=== PATIENT | male | born 1980 | race Caucasian/White ===

== ENCOUNTER 2017-07-15 13:59 | Inpatient (IN) | payer OTHER, MEDICARE ==
[~2017-07-15] VITALS: Ht 188 cm; Wt 130.0 kg
[2017-07-15] MEDS ORDERED: METF500T4 PO (14:28)
[2017-07-15] MEDS ORDERED: MEST60TA PO (14:28)
[2017-07-15] MEDS ORDERED: LANTUS2P SQ (14:28)
[2017-07-15] MEDS ORDERED: MYCO250 PO (14:28)
[2017-07-15] MEDS ORDERED: GLIP1TAB60 PO (14:28)
[2017-07-15] MEDS ORDERED: OMEP20TA93 PO (14:28)
[2017-07-15] MEDS ORDERED: LOPE-1 PO (14:28)
[2017-07-15] MEDS ORDERED: triglyceride med PO (14:28)
[2017-07-15] MEDS ORDERED: PAXI10TA8 PO (14:28)
[2017-07-15] MEDS ORDERED: ACETAMINOPHEN 325 MG TAB PO PRN (18:00)
[2017-07-15] MEDS ORDERED: MAGNESIUM HYDROXIDE SUSP 30 ML CUP PO PRN (18:00)
[2017-07-15] MEDS ORDERED: NALOXONE HCL 0.4 MG/ML AMP IV PUSH PRN (18:00)
[2017-07-15] MEDS ORDERED: BISACODYL 10 MG SUPP RECTAL PRN (18:00)
[2017-07-15] MEDS ORDERED: LACTULOSE SYRUP 20 GM/30 ML CUP PO PRN (18:00)
[2017-07-15] MEDS ORDERED: SENNOSIDES 8.6 MG TAB PO PRN (18:00)
[2017-07-15] MEDS ORDERED: ONDANSETRON HCL 4 MG/2 ML VIAL IVP PRN (18:00)
[2017-07-15] MEDS ORDERED: SODIUM CHLORIDE 0.9% FLUSH 10 ML FLUSH IV FLUSH PRN (18:00)
[2017-07-15 20:00] VITALS: BP 135/88; PULSE 58; RESP 16; TEMP 98; O2SAT 95
[2017-07-15] MEDS ORDERED: IOHEXOL 350 MG/ML 10 ML VIAL (for RAD DIAG) IVCONTRAST ONE (20:21)
[2017-07-15] MEDS ORDERED: DEXTROSE 50% IN WATER 50 ML VIAL(D50) IV PUSH PRN (22:45)
[2017-07-15] MEDS ORDERED: GLUCAGON 1 MG/ML VIAL OTHER PRN (22:45)
--- NOTE | 2017-07-15 23:28 | HHI.HP ---
[facility]Staff Ad[facility] Diagnosis Myasthenia Gravis with concern for early crisis . Diagnoses: (1) Myasthenia gravis (2) Type 2 diabetes mellitus Chief Complaint: Lung congestion with ineffective cough Travel History International Travel<30 Days: No Contact w/Intl Traveler <30 Da: No History of Present Illness Mr. Queen is a pleasant 36-year-old male who moved here from [place], [place] in August/September 2016 and has a history of myasthenia gravis diagnosed in 2009 who presented tot he ER in [place] complaining of lung congestion with ineffective cough. The case was discussed with the administration vice president neurologist who had concern for early myasthenia gravis crisis and recommended transfer to main [facility] for further evaluation. The patient is seen in his hospital room. He reports symptoms started on July 06 while he was watching the [employer] draft. He ate some buffalo chicken pizza and felt like he had heartburn afterwards. He states he developed what felt like chest congestion afterwards and was concerned that he may have aspirated in his sleep because his CPAP tubing smelled like buffalo sauce. He has had persistent chest congestion since then and has tried to cough but can only "clear my throat". He reports feeling warm yesterday but has no recorded fever and denies chills. He has chronically loose stools but denies nausea or vomiting or any recent changes in stool pattern. He denies any weakness. He reports no history of respiratory failure or intubation. Review of Systems Except as stated in HPI: all other systems reviewed are Neg Past Family Social History Past Medical History Myasthenia Gravis diagnosed in 2009 Type 2 diabetes mellitus diagnosed in 2014 Obstructive sleep apnea on CPAP at home GERD Depression Hypertriglyceridemia High blood pressure at times -never treated with medication Chronic breathing problems - not given a diagnosis for despite extensive workup Denies heart disease, irregular heart rhythms, emphysema, COPD, chronic bronchitis, liver disease, kidney disease, DVT, PE, CVA, seizures, thyroid disease, cancer . Past Surgical History Umbilical hernia repair Appendectomy Cholecystectomy Bilateral ACL reconstruction Port placed for plasmapheresis in 2009 and removed . Reported Medications Reported Meds & Active Scripts Active Reported Fenofibrate 145 Mg Tab 145 Mg PO DAILY Lantus Inj (Insulin Glargine) 1,000 Unit/10 Ml Vial 40 Units SQ HS Imodium A-D (Loperamide HCl) 2 Mg Capsule 2 Mg PO DAILY PRN One capsule after each loose stool. Not to exceed 8 tablets per day. Omeprazole 20 Mg Tab 20 Mg PO DAILY [triglyceride med] 1 Tab PO HS Paxil (Paroxetine HCl) 10 Mg Tab 10 Mg PO DAILY Glipizide ER (Glipizide) 2.5 Mg Estefania 2.5 Mg PO DAILY Take with breakfast or first main meal of the day Metformin ER (Metformin HCl) 500 Mg Estefania 500 Mg PO BID With evening meal Mestinon (Pyridostigmine Leland) 60 Mg Tab 60 Mg PO Q4HR Cellcept (Mycophenolate Mofetil) 250 Mg Cap 1,000 Mg PO BID . Allergies: Coded Allergies: No Known Allergies (Unverified , 07/15/17) Family History No family history of myasthenia gravis No autoimmune disease in family Father with heart disease Mother with osteoporosis . 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 Physical Exam Physical Exam CONSTITUTIONAL: This is a pleasant, overweight male patient, in no apparent distress. INTEGUMENTARY: No rashes, ecchymoses or lesions. Cool and dry. HEAD: Atraumatic. Normocephalic. EYES: No scleral icterus. No injection or drainage. ENT: Nose without bleeding, purulent drainage. NECK: Trachea midline. No JVD. CARDIOVASCULAR: Regular rate and rhythm without murmurs, gallops, or rubs. RESPIRATORY: Clear to auscultation. Breath sounds equal bilaterally. No wheezes , rales, or rhonchi. GASTROINTESTINAL: Abdomen soft, non-tender, nondistended. No guarding. MUSCULOSKELETAL: Extremities without clubbing, cyanosis, or edema. No calf tenderness. NEUROLOGICAL: Awake and alert. Motor 5-/5 upper extremities but 5/5 strength otherwise and sensory grossly within normal limits. Normal speech. . Laboratory Laboratory Tests Test 07/15/17 15:07 07/15/17 17:17 White Blood Count 7.0 TH/MM3 Red Blood Count 4.70 MIL/MM3 Hemoglobin 14.1 GM/DL Hematocrit 40.5 % Mean Corpuscular Volume 86.2 FL Mean Corpuscular Hemoglobin 30.0 PG Mean Corpuscular Hemoglobin Concent 34.8 % Red Cell Distribution Width 11.9 % Platelet Count 216 TH/MM3 Mean Platelet Volume 11.0 FL Immature Granulocyte % (Auto) 0.3 % Neutrophils (%) (Auto) 44.9 % Lymphocytes (%) (Auto) 37.7 % Monocytes (%) (Auto) 11.2 % Eosinophils (%) (Auto) 5.0 % Basophils (%) (Auto) 0.9 % Immature Granulocyte # (Auto) 0.0 TH/MM3 Neutrophils # (Auto) 3.1 TH/MM3 Lymphocytes # (Auto) 2.6 TH/MM3 Monocytes # (Auto) 0.8 TH/MM3 Eosinophils # (Auto) 0.4 TH/MM3 Basophils # (Auto) 0.1 TH/MM3 CBC Comment DIFF FINAL Differential Comment Prothrombin Time 10.0 SEC Prothromb Time International Ratio 1.0 RATIO Activated Partial Thromboplast Time 23.2 SEC Blood Urea Nitrogen 21 MG/DL Creatinine 0.80 MG/DL Random Glucose 107 MG/DL Total Protein 7.5 GM/DL Albumin 4.1 GM/DL Calcium Level 9.0 MG/DL Alkaline Phosphatase 54 U/L Aspartate Amino Transf (AST/SGOT) 31 U/L Alanine Aminotransferase (ALT/SGPT) 65 U/L Total Bilirubin 0.5 MG/DL Sodium Level 141 MEQ/L Potassium Level 4.3 MEQ/L Chloride Level 106 MEQ/L Carbon Dioxide Level 25.0 MEQ/L Anion Gap 10 MEQ/L Estimat Glomerular Filtration Rate 109 ML/MIN Lactic Acid Level 0.9 mmol/L Lipase 99 U/L Blood Gas Puncture Site RT RADIAL Blood Gas HCO3 24 mmol/L Bedside Blood Gas Base Excess (LAB) 0.0 mmol/L Blood Gas Oxygen Saturation 94 % Arterial Blood pH 7.42 Arterial Blood Partial Pressure CO2 38 mmHG Arterial Blood Partial Pressure O2 71 mmHG Arterial Blood Oxygen Content 25.0 Vol % Oxygen Delivery Device ROOM AIR Blood Gas Inspired Oxygen 21 % . Imaging Last Impressions Chest X-Ray 07/15/17 0000 Signed Impressions: Service Date/Time: Saturday, July 15, 2017 15:19 - CONCLUSION: No acute cardiopulmonary disease identified. Santo Gonsales MD . Caprini VTE Risk Assessment Caprini VTE Risk Assessment: No/Low Risk (score <= 1) Caprini Risk Assessment Model Point Value = 1 Point Value = 2 Point Value = 3 Point Value = 5 Age 41-60 Minor surgery BMI > 25 kg/m2 Swollen legs Varicose veins or History of unexplained or recurrent spontaneous Oral contraceptives or hormone replacement Sepsis (< 1 month) Serious lung disease, including pneumonia (< 1 month) Abnormal pulmonary function Acute myocardial infarction Congestive heart failure (< 1 month) History of inflammatory bowel disease Medical patient at bed rest Age 61-74 Arthroscopic surgery Major open surgery (> 45 min) Laparoscopic surgery (> 45 min) Malignancy Confined to bed (> 72 hours) Immobilizing plaster cast Central venous access Age >= 75 History of VTE Family history of VTE Factor V Leiden Prothrombin [id number] Lupus anticoagulant Anticardiolipin antibodies Elevated serum homocysteine Heparin-induced thrombocytopenia Other congenital or acquired thrombophilia Stroke (< 1 month) Elective arthroplasty Hip, pelvis, or leg fracture Acute spinal cord injury (< 1 month) Prophylaxis Regimen Total Risk Factor Score Risk Level Prophylaxis Regimen 0-1 Low Early ambulation 2 Moderate Order ONE of the following: *Sequential Compression Device (SCD) *Heparin 5000 units SQ BID 3-4 Higher Order ONE of the following medications: *Heparin 5000 units SQ TID *Enoxaparin/Lovenox 40 mg SQ daily (WT < 150 kg, CrCl > 30 mL/min) *Enoxaparin/Lovenox 30 mg SQ daily (WT < 150 kg, CrCl > 10-29 mL/min) *Enoxaparin/Lovenox 30 mg SQ BID (WT < 150 kg, CrCl > 30 mL/min) AND/OR *Sequential Compression Device (SCD) 5 or more Highest Order ONE of the following medications: *Heparin 5000 units SQ TID (Preferred with Epidurals) *Enoxaparin/Lovenox 40 mg SQ daily (WT < 150 kg, CrCl > 30 mL/min) *Enoxaparin/Lovenox 30 mg SQ daily (WT < 150 kg, CrCl > 10-29 mL/min) *Enoxaparin/Lovenox 30 mg SQ BID (WT < 150 kg, CrCl > 30 mL/min) AND *Sequential Compression Device (SCD) Assessment and Plan Assessment and Plan Mr. Queen is a pleasant 36-year-old male who moved here from [place], [place] in August/September 2016 and has a history of myasthenia gravis diagnosed in 2009 who presented tot he ER in [place] complaining of lung congestion with ineffective cough. The case was discussed with the administration vice president neurologist who had concern for early myasthenia gravis crisis and recommended transfer to main [facility] for further evaluation. Myasthenia Gravis - consult neurology - Dr. Mcdaniel - appreciate assistance - further workup per neuro - Tidal volume and NIF per RT qshift - neurochecks q2h - resume home Mestinon and Cellcept T2DM - hold glipizide and metformin for now - continue home lantus - Accu-Cheks before meals and at bedtime with low-dose NovoLog sliding scale coverage - PRN Hypoglycemia treatment protocol - Monitor trends and blood glucose readings and adjust treatments as indicated Hypertriglyceridemia - continue home Tricor GERD - continue home omeprazole or formulary equivalent JESUS - continue CPAP at night on home settings Depression - continue home Paxil DVT prophylaxis - SCDs/TEDs Discussed Condition With Patient, RN, and Dr. Murray . Physician Certification 2 Midnight Certification Type: Admission for Inpatient Services Order for Inpatient Services The services are ordered in accordance with Medicare regulations or non- Medicare payer requirements, as applicable. In the case of services not specified as inpatient-only, they are appropriately provided as inpatient services in accordance with the 2-midnight benchmark. Estimated LOS (days): 4 days is the estimated time the patient will need to remain in the hospital, assuming treatment plan goals are met and no additional complications. Post-Hospital Plan: Home Berenice Galaviz July 15, 2017 23:28
[2017-07-15] MEDS ORDERED: FENO145T2 PO (23:54)
[2017-07-16] VITALS (8 sets, daily range): BP systolic 118–139; BP diastolic 65–81; PULSE 54–70; RESP 16–20; TEMP 97.5–98.4; O2SAT 95–97
[2017-07-16] MEDS: PYRIDOSTIGMINE BROMIDE 60 MG TAB PO SCH ×6 (00:09→21:33)
[2017-07-16] MEDS: MYCOPHENOLATE MOFETIL 250 MG CAP PO SCH ×3 (00:10→21:33)
[2017-07-16] MEDS: SODIUM CHLORIDE 0.9% FLUSH 10 ML FLUSH IV FLUSH SCH ×3 (00:10→21:33)
[2017-07-16] MEDS: SODIUM CHLOR 0.45% 1000 ML INJ 1,000 ML IV SCH ×4 (00:30→20:36)
[2017-07-16 04:39] LABS: RHEUMATOID FACTOR SCREEN NEGATIVE (NEGATIVE)
[2017-07-16 05:10] LABS: FREE T4 0.85 NG/DL (0.76-1.46)
[2017-07-16] MEDS: INSULIN ASPART SUPPLEMENTAL SCALE SQ SCH ×4 (08:00→21:00)
[2017-07-16 08:16] LABS: AUTOMATED NEUTROPHIL # 3.1 TH/MM3 (1.8-7.7); BASOPHIL # 0.1 TH/MM3 (0-0.2); BASOPHIL % 1.1 % (0.0-2.0); EOSINOPHIL # 0.4 TH/MM3 (0-0.4); EOSINOPHIL % 5.4 % (0.0-4.0); HEMOGLOBIN 14.5 GM/DL (13.0-17.0); LYMPH % 39.6 % (9.0-44.0); LYMPHOCYTE # 2.8 TH/MM3 (1.0-4.8); MEAN CELL VOLUME 86.6 FL (80.0-100.0); MEAN CORPUSCULAR HEMOGLOBIN 29.9 PG (27.0-34.0); MEAN CORPUSCULAR HGB CONC 34.5 % (32.0-36.0); MEAN PLATELET VOLUME 9.8 FL (7.0-11.0); MONO % 10.5 % (0.0-8.0); MONOCYTE # 0.8 TH/MM3 (0-0.9); NEUT % 43.4 % (16.0-70.0); PLATELET COUNT 206 TH/MM3 (150-450); RED BLOOD COUNT 4.85 MIL/MM3 (4.50-5.90); RED CELL DISTRIBUTION WIDTH 12.8 % (11.6-17.2); WHITE BLOOD COUNT 7.2 TH/MM3 (4.0-11.0)
[2017-07-16] MEDS: FENOFIBRATE 145 MG TAB PO SCH (08:24)
[2017-07-16] MEDS: PANTOPRAZOLE SOD 20 MG DELAYED RELEASE TAB PO SCH (08:25)
[2017-07-16] MEDS: PARoxetine HCL 20 MG TAB PO SCH (08:25)
[2017-07-16 08:29] LABS: BICARBONATE 24.1 MEQ/L (21.0-32.0); CALCIUM 8.9 MG/DL (8.5-10.1); CREATININE 0.93 MG/DL (0.60-1.30)
[2017-07-16] MEDS ORDERED: INFLUENZA VIRUS VACCINE (QUADRIVALENT) 0.5 ML SYR IM ONE (09:00)
--- NOTE | 2017-07-16 10:44 | MB ---
cc: David Mcdaniel MD DATE: 07/16/2017 HISTORY OF PRESENT ILLNESS: This is a 36-year-old right-handed man with hypertension and insulin-dependent diabetes. He has had myasthenia gravis for about 8 years and he has been on CellCept since 2015, 500 b.i.d. Myasthenia usually is general weakness in his legs and arms. He has double vision on far lateral gaze almost continuously, rarely has trouble swallowing. He had a CT scan of his chest, which showed some possible slight residual thymus, but no thymoma in 2009; never had the thymus removed. He has had some chest pressure and shortness of breath recently. He has had it remotely in the past. No definite fever or cough, and he went in to the ER just to make sure he was not developing pneumonia. I was called from the [place] [facility] yesterday. They said he was having lung congestion, unable to clear his lungs, and he had voice change. He was feeling weak, unable to take a deep breath, unable to cough effectively; however, the patient himself tells me that he really has not had a cough at all and it is just more of a chest pressure. He has not felt like he is sick or with a cold. No new or worsening of his myasthenia symptoms. PAST MEDICAL HISTORY: Noted for insulin-dependent diabetes, hypertension, some depression, hypertriglyceridemia, and the myasthenia gravis. No other major medical problems. REVIEW OF SYSTEMS: He denies any hypercholesterolemia, AR, CABG, stent, angioplasty, AFib, Coumadin; renal, hepatic or pulmonary disease; thyroid disease, lupus, ulcer, cancer, seizure or stroke. 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 He is on disability. FAMILY HISTORY: Negative for cancer, seizures or stroke. MEDICATIONS: 1. He takes insulin 2. Imodium. 3. Omeprazole. 4. Paxil. 5. Glipizide. 6. Metformin. 7. Mestinon 60 q.4 hours. 8. CellCept, has written down here as 1000 mg b.i.d., although I am not sure if his dose is not 500, it is unclear, and that needs to be clarified probably from his checking the bottles at home, because he is on 1000 b.i.d. here. PHYSICAL EXAMINATION: VITAL SIGNS: He is afebrile, heart rate 60, respiratory rate 18, blood pressure 121/67. NECK: There were no carotid bruits. HEART: Regular rhythm. I did not detect a murmur. LUNGS: Clear. He does move adequate air there. NEUROLOGIC: Pupils are equal. Visual huerta are full. Extraocular movements intact without nystagmus, although he does have double vision looking laterally bilaterally. Upward gaze was normal. Facial strength was normal including buccal and facial muscles and eye closure. Neck flexors were normal on repetitive testing as was eye closure. Deltoids on repetitive testing was 5-/5, otherwise strength in triceps, finger extensors, iliopsoas, tibialis anterior were normal. DTRs are 1+ and symmetric throughout. Light touch is intact throughout. He has no ankle clonus. He had normal gait. He is able to get up out of bed. He is able to stand from a chair 3 times in a row without problems. His voice is strong. LABORATORY DATA: CBC is normal. Sedimentation rate 5. Rheumatoid factor is negative. Basic metabolic profile was normal. LFTs normal. Albumin normal. B12 was 304. Thyroid normal. Coags normal. He had a blood gas done, which was 7.42/38/71, normal. IMAGING STUDIES: He had a chest x-ray that was normal. IMPRESSION: I do not see any significant myasthenia exacerbation here. RECOMMENDATIONS: I talked with the med team. They will do a stress test on his heart and if that is negative, he could be discharged. He has an appointment with neurology outpatient in about 2 weeks. MD HAILEY Smart/MANN , 10:22 AM , 10:43 AM
[2017-07-16 12:37] LABS: TROPONIN I LESS THAN 0.02 NG/ML (0.02-0.05)
--- NOTE | 2017-07-16 15:56 | HHI.PR ---
Subjective Remarks Patient complains of a sensation of congestion in his chest with the fullness and tightness anteriorly. He has no cough. Evaluation by neurology shows no overt concerns for myasthenia gravis exacerbation. There is a mild concern in regards to his NIF respiratory testing shows 25%. Objective Vital Signs Date Time Temp Pulse Resp B/P (MAP) Pulse Ox O2 Delivery O2 Flow Rate FiO2 07/16/17 12:00 98.4 54 18 123/65 (84) 95 07/16/17 08:00 97.5 60 18 121/67 (85) 96 07/16/17 04:00 97.7 67 16 123/71 (88) 96 07/16/17 01:15 21 07/16/17 00:00 98.0 70 16 136/71 (92) 95 07/16/17 00:00 98.0 70 16 136/71 (92) 95 07/15/17 20:00 98.0 58 16 135/88 (104) 95 I/O 07/15/17 07/15/17 07/15/17 07/16/17 07/16/17 07/16/17 06:59 14:59 22:59 06:59 14:59 22:59 Intake Total 600 ml Balance 600 ml Intake Oral 600 ml # Voids 2 # Bowel Movements 2 Result Diagram: 07/16/17 0723 07/16/17 0723 Objective Remarks GENERAL: NAD, A&Ox3 HEAD: Normocephalic. NECK: Supple, trachea midline. No lymphadenopathy. EYES: No scleral icterus. No injection or drainage. CARDIOVASCULAR: Regular rate and rhythm without murmurs, gallops, or rubs. RESPIRATORY: Breath sounds equal bilaterally. No accessory muscle use. GASTROINTESTINAL: Abdomen soft, non-tender, nondistended. MUSCULOSKELETAL: No cyanosis, or edema. SKIN: Warm and dry. NEURO: No focal neurological deficitis. A/P Problem List: (1) Chest pain ICD Code: R07.9 - Chest pain, unspecified (2) Type 2 diabetes mellitus ICD Code: E11.9 - Type 2 diabetes mellitus without complications Status: Chronic (3) Myasthenia gravis ICD Code: G70.00 - Myasthenia gravis without (acute) exacerbation Assessment and Plan 36-year-old male admitted secondary to possible myasthenia gravis exacerbation with anterior chest pain/tightness Myasthenia Gravis versus chest pain Low concern for neurological evaluation Troponin is normal Neurology continues to follow NIF testing was 25% Pulmonology consulted CTA ordered by pulmonology Stress test pending Continue Mestinon and Cellcept Diabetes mellitus type 2 Follow blood sugars Insulin sliding scale Diabetic diet Hypertriglyceridemia Continue Tricor GERD Continue omeprazole JESUS Continue CPAP Depression Continue Paxil DVT prophylaxis SCDs/TEDs Discharge planning We will discharge if CTA is negative and if stress testing is negative Robin Sheth MD July 16, 2017 15:56
[2017-07-16] MEDS ORDERED: RESP: ALBUTEROL 1.25 MG/3 ML NEB (PRN) NEB (16:00)
--- NOTE | 2017-07-16 16:26 | MB ---
cc: Shelly Ashraf MD DATE: 07/16/2017 REASON FOR CONSULTATION: Respiratory insufficiency and myasthenia. HISTORY OF PRESENT ILLNESS: This is a 36-year-old overweight white male with a past history of myasthenia gravis diagnosed in 2009, has been on therapy for the same since then. The patient apparently presented to the ER this weekend with tightness in his chest and a cough which was not productive. He denied fevers or chills, but has had some trouble taking deep breaths and he has had some epigastric distress with reflux as well. The patient has been overweight and has a CPAP mask at home, which he uses at night. He has had no leg or calf muscle pains. He has some weakness of his extremities, which he states may be slightly worse over the past month. He has had no night sweats, fevers or chills and denied any skin rash. PAST MEDICAL HISTORY: Includes a history of myasthenia gravis and a history of obstructive sleep apnea syndrome. He has had type 2 diabetes , has depression and triglyceridemia. He has hypertension and a history for asthma at a young age. PAST SURGICAL HISTORY: Includes appendectomy, cholecystectomy, bilateral ACL reconstructions, umbilical hernia repair, and plasmapheresis in the past with port placement. FAMILY HISTORY: Noncontributory. ALLERGIES: NONE LISTED. SOCIAL HISTORY: The patient smoked 1 to 2 packs per day for 20 years and occasional alcohol use. 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 REVIEW OF SYSTEMS: The patient has had some dizziness, tightness in the chest, epigastric distress, reflux. No leg swelling. He has weakness of his extremities. There are no urinary symptoms. No depression or anxiety. The other system review is negative. PHYSICAL EXAMINATION: GENERAL: This moderately obese, young, white male is alert and oriented, no acute distress. No pallor icterus, cyanosis or lymphadenopathy. VITAL SIGNS: Blood pressure 140/70, pulse is 82, respirations 20, and temperature is 97.5. HEENT: Head is normocephalic. Pupils reactive and equal. Nasal mucosa injected. Throat was clear. Ears: No inflammation. NECK: No bruits, no thyroid enlargement, no lymphadenopathy. CHEST: Equal movements with a few scattered wheezes in the upper lung huerta. HEART: Sounds are regular S1 and S2. No murmur. No S3 gallop. ABDOMEN: Soft, obese without masses. No organomegaly or tenderness. EXTREMITIES: No edema, no calf tenderness. NEUROLOGIC: Reflexes are 1+ with no gross motor deficits. Cranial nerves are grossly intact. RECTAL: Exam is deferred. SKIN: No lesions. IMPRESSION: 1. Myasthenia gravis with acute exacerbation. 2. Obstructive sleep apnea syndrome. 3. Rule out pulmonary embolism. 4. History of diabetes mellitus. 5. Depression. PLAN: The patient will be sent for a CTA of the chest and a pulmonary function study. Peak flows will be measured every shift. Nebulized albuterol solution added q.i.d. p.r.n. BiPAP mask at night for sleep apnea and the patient will be maintained on his medication for myasthenia. If there is any suggestion of respiratory insufficiency progressing, he may need to be transferred to acute care. We will review the labs and PFTs and follow the case with you. MD SHANICE Stewart/MANN , 03:58 PM , 04:25 PM
--- NOTE | 2017-07-16 16:49 | RADRPT ---
EXAM DATE/TIME: 07/16/2017 16:23 [facility] COMPARISON: No previous studies available for comparison. INDICATIONS : Rule out pulmonary embolism. IV CONTRAST: 72 cc Omnipaque 350 (iohexol) IV RADIATION DOSE: 23.47 CTDIvol (mGy) MEDICAL HISTORY : Myasthenia gravis, Diabetes SURGICAL HISTORY : Appendectomy. Cholecystectomy.Umbilical hernia repair. ENCOUNTER: Initial ACUITY: 1 day PAIN SCALE: 2/10 LOCATION: chest TECHNIQUE: Volumetric scanning of the chest was performed using a pulmonary embolism protocol MIP images were re constructed. Using automated exposure control and adjustment of the mA and/or kV according to patien t size, radiation dose was kept as low as reasonably achievable to obtain optimal diagnostic quality images. DICOM format image data is available electronically for review and comparison. Follow-up recommendations for detected pulmonary nodules are based at a minimum on nodule size and pa tient risk factors according to Fleischner Society Guidelines. FINDINGS: PULMONARY ARTERIES: No filling defects are seen in the pulmonary arteries through the segmental level. LUNGS: There is no consolidation or pneumothorax . No concerning pulmonary nodule is visualized. Minimal fo graham scarring is noted within the posterior aspect of left lower lobe. Right apical bleb is noted. PLEURAE: There is no pleural thickening or pleural effusion. MEDIASTINUM: There is good visualization of the great vessels of the middle mediastinum. No evidence of mediastin al or hilar adenopathy/mass. The heart is mildly prominent. MUSCULOSKELETAL: Within normal limits for patient age. MISCELLANEOUS: The visualized upper abdominal organs demonstrate no acute abnormality. There is an enlarged fatty li sherice. Mild splenomegaly is noted. There is fat density within the duodenal bulb suggesting lipoma. CONCLUSION: 1. No evidence of pulmonary embolism. 2. Mild cardiomegaly. 3. Enlarged fatty liver. 4. Mild splenomegaly. 5. 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 6. Fibrotic scarring within the left posterior lung base. 7. Tiny apical bleb on the right. Diomedes Mckeon MD on July 16, 2017 at 16:43 Board Certified Radiologist. This report was verified electronically.
[2017-07-16] MEDS: INSULIN DETEMIR 100 UNITS/ML VIAL SQ SCH (22:30)
[2017-07-17] VITALS (7 sets, daily range): BP systolic 117–148; BP diastolic 59–83; PULSE 60–76; RESP 18–21; TEMP 97.9–98.3; O2SAT 95–98
[2017-07-17] MEDS: PYRIDOSTIGMINE BROMIDE 60 MG TAB PO SCH ×6 (00:38→21:20)
[2017-07-17 07:33] LABS: AUTOMATED NEUTROPHIL # 3.6 TH/MM3 (1.8-7.7); BASOPHIL # 0.1 TH/MM3 (0-0.2); EOSINOPHIL # 0.3 TH/MM3 (0-0.4); EOSINOPHIL % 4.2 % (0.0-4.0); HEMATOCRIT 42.2 % (39.0-51.0); HEMOGLOBIN 14.6 GM/DL (13.0-17.0); LYMPH % 27.8 % (9.0-44.0); LYMPHOCYTE # 1.8 TH/MM3 (1.0-4.8); MEAN CELL VOLUME 85.7 FL (80.0-100.0); MEAN CORPUSCULAR HEMOGLOBIN 29.6 PG (27.0-34.0); MEAN CORPUSCULAR HGB CONC 34.6 % (32.0-36.0); MEAN PLATELET VOLUME 9.5 FL (7.0-11.0); MONO % 11.2 % (0.0-8.0); MONOCYTE # 0.7 TH/MM3 (0-0.9); NEUT % 55.8 % (16.0-70.0); PLATELET COUNT 202 TH/MM3 (150-450); RED BLOOD COUNT 4.93 MIL/MM3 (4.50-5.90); RED CELL DISTRIBUTION WIDTH 12.6 % (11.6-17.2); WHITE BLOOD COUNT 6.5 TH/MM3 (4.0-11.0)
[2017-07-17] MEDS: INSULIN ASPART SUPPLEMENTAL SCALE SQ SCH ×4 (08:01→20:45)
[2017-07-17 08:05] LABS: ALT (GPT) 68 U/L (12-78)
[2017-07-17 08:07] LABS: ALKALINE PHOSPHATASE 51 U/L (45-117); TOTAL BILIRUBIN ADULT 0.8 MG/DL (0.2-1.0); TOTAL PROTEIN 7.1 GM/DL (6.4-8.2)
[2017-07-17 08:13] LABS: ALBUMIN 3.8 GM/DL (3.4-5.0); AST (GOT) 41 U/L (15-37); BICARBONATE 25.7 MEQ/L (21.0-32.0); BLOOD UREA NITROGEN 13 MG/DL (7-18); CHLORIDE 106 MEQ/L (98-107); GLOMERULAR FILTRATION RATE 95 ML/MIN (>89); GLUCOSE,RANDOM 105 MG/DL (74-106); SODIUM (NA) 139 MEQ/L (136-145)
--- NOTE | 2017-07-17 08:31 | HHI.PR ---
Subjective Remarks cp better this am Objective Vital Signs Date Time Temp Pulse Resp B/P (MAP) Pulse Ox O2 Delivery O2 Flow Rate FiO2 07/17/17 06:26 97.9 71 21 117/59 (78) 98 07/17/17 00:00 98.3 76 18 135/76 (95) 95 07/16/17 23:00 61 07/16/17 22:18 97 21 07/16/17 20:00 98.1 57 20 139/81 (100) 95 07/16/17 16:00 98.3 70 18 118/66 (83) 95 07/16/17 12:00 98.4 54 18 123/65 (84) 95 I/O 07/16/17 07/16/17 07/16/17 07/17/17 07/17/17 07/17/17 07:00 15:00 23:00 07:00 15:00 23:00 Intake Total 600 ml 955 ml Balance 600 ml 955 ml Intake Oral 600 ml IV Total 955 ml # Voids 2 # Bowel Movements 2 Result Diagram: 07/17/17 0658 07/17/17 0658 Objective Remarks 5/5 facial mm nl Assessment and Plan Assessment and Plan imp mg stable cta neg stress est todaty' he tells me nif yest better fatty large liver defer to med team on bipap David Mcdaniel MD July 17, 2017 08:31
[2017-07-17] MEDS: PARoxetine HCL 20 MG TAB PO SCH (09:44)
[2017-07-17] MEDS: MYCOPHENOLATE MOFETIL 250 MG CAP PO SCH (09:44)
[2017-07-17] MEDS: FENOFIBRATE 145 MG TAB PO SCH (09:45)
[2017-07-17] MEDS: PANTOPRAZOLE SOD 20 MG DELAYED RELEASE TAB PO SCH (09:45)
[2017-07-17] MEDS: SODIUM CHLORIDE 0.9% FLUSH 10 ML FLUSH IV FLUSH SCH ×2 (09:45→21:22)
[2017-07-17] MEDS: SODIUM CHLOR 0.45% 1000 ML INJ 1,000 ML IV SCH (09:56)
[2017-07-17] MEDS ORDERED: PNEUMOCOCCAL POLYVALENT INJ 25 MCG/0.5 ML SYR IM ONE (10:00)
[2017-07-17] MEDS ORDERED: REGADENOSON INJ 0.4 MG/5 ML SYR ONE (10:54)
--- NOTE | 2017-07-17 13:26 | HHI.PR ---
Subjective Remarks Follow-up shortness of breath. He is improving tolerating room air. Ex smoker. CT results discussed with patient and , patient to follow-up with GI regarding enlarged fatty liver and splenomegaly. He has been started on a medication for elevated triglycerides. Discussed with nursing, patient to return to stress test for second portion tomorrow Objective Vitals Vital Signs Date Time Temp Pulse Resp B/P (MAP) Pulse Ox O2 Delivery O2 Flow Rate FiO2 07/17/17 13:03 62 07/17/17 12:00 98.1 67 18 137/83 (101) 97 07/17/17 08:00 98.1 64 18 130/77 (94) 97 07/17/17 06:26 97.9 71 21 117/59 (78) 98 07/17/17 00:00 98.3 76 18 135/76 (95) 95 07/16/17 23:00 61 07/16/17 22:18 97 21 07/16/17 20:00 98.1 57 20 139/81 (100) 95 07/16/17 16:00 98.3 70 18 118/66 (83) 95 I/O 07/16/17 07/16/17 07/16/17 07/17/17 07/17/17 07/17/17 07:00 15:00 23:00 07:00 15:00 23:00 Intake Total 600 ml 955 ml Balance 600 ml 955 ml Intake Oral 600 ml IV Total 955 ml # Voids 2 # Bowel Movements 2 Result Diagram: 07/17/17 0658 07/17/17 [address] Angiography 07/16/17 1550 Signed Impressions: Service Date/Time: Sunday, July 16, 2017 16:23 - CONCLUSION: 1. No evidence of pulmonary embolism. 2. Mild cardiomegaly. 3. Enlarged fatty liver. 4. Mild splenomegaly. 5. 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 6. Fibrotic scarring within the left posterior lung base. 7. Tiny apical bleb on the right. Diomedes Mckeon MD Objective Remarks GENERAL: NAD, A&Ox3 CARDIOVASCULAR: Regular rate and rhythm without murmurs, gallops, or rubs. RESPIRATORY: Breath sounds equal bilaterally. No accessory muscle use. GASTROINTESTINAL: Abdomen soft, non-tender, nondistended. MUSCULOSKELETAL: No cyanosis, or edema. SKIN: Warm and dry. NEURO: No focal neurological deficits. Procedures none A/P Problem List: (1) Myasthenia gravis ICD Code: G70.00 - Myasthenia gravis without (acute) exacerbation (2) Type 2 diabetes mellitus ICD Code: E11.9 - Type 2 diabetes mellitus without complications Status: Chronic Assessment and Plan 36-year-old male admitted secondary to possible myasthenia gravis exacerbation with anterior chest pain/tightness Myasthenia Gravis versus chest pain Low concern for neurological evaluation Troponin is normal Neurology continues to follow NIF testing was 25% Pulmonology consulted CTA negative for PE Stress test pending Continue Mestinon and Cellcept Diabetes mellitus type 2 Follow blood sugars Insulin sliding scale Diabetic diet Hypertriglyceridemia Continue Tricor GERD Continue omeprazole JESUS Continue CPAP. Patient also advised to undergo pulmonary function tests outpatient Depression Continue Paxil Enlarged fatty liver with splenomegaly. Outpatient follow-up with gastroenterology. Weight reduction and management of lipids DVT prophylaxis SCDs/TEDs Esvin Traylor MD July 17, 2017 13:26
--- NOTE | 2017-07-17 13:28 | HHI.DCPOC ---
Discharge Care Plan Diagnosis: (1) Type 2 diabetes mellitus (2) Chest pain (3) Myasthenia gravis Your Health Problems Are: Difficulty with ADL Exercise Tolerance Goals to Promote Your Health * To prevent worsening of your condition and complications * To maintain your health at the optimal level Directions to Meet Your Goals Take your medications as prescribed Follow your dietary instruction Follow activity as directed Keep your appointments as scheduled Take your immunizations and boosters as scheduled If your symptoms worsen call your PCP, if no PCP go to Urgent Care Center or Emergency Room Smoking is Dangerous to Your Health. Avoid second hand smoke Call the 24-hour hour crisis hotline for domestic abuse at Esvin Traylor MD July 17, 2017 13:28
--- NOTE | 2017-07-17 19:18 | HHI.PR ---
Subjective Remarks Feels well. No SOB at rest. PFT to be done. O2 sat 98 on RA Objective Vital Signs Date Time Temp Pulse Resp B/P (MAP) Pulse Ox O2 Delivery O2 Flow Rate FiO2 07/17/17 16:00 98.2 69 18 137/65 (89) 96 07/17/17 13:03 62 07/17/17 12:00 98.1 67 18 137/83 (101) 97 07/17/17 08:00 98.1 64 18 130/77 (94) 97 07/17/17 06:26 97.9 71 21 117/59 (78) 98 07/17/17 00:00 98.3 76 18 135/76 (95) 95 07/16/17 23:00 61 07/16/17 22:18 97 21 07/16/17 20:00 98.1 57 20 139/81 (100) 95 I/O 07/16/17 07/16/17 07/16/17 07/17/17 07/17/17 07/17/17 07:00 15:00 23:00 07:00 15:00 23:00 Intake Total 600 ml 955 ml 960 ml Balance 600 ml 955 ml 960 ml Intake Oral 600 ml 960 ml IV Total 955 ml # Voids 2 5 # Bowel Movements 2 3 Result Diagram: 07/17/17 0658 07/17/17 0658 Objective Remarks GENERAL: This moderately obese, young, white male is alert and oriented, no acute distress. No pallor icterus, cyanosis or lymphadenopathy. HEENT: Head is normocephalic. Pupils reactive and equal. Nasal mucosa injected. Throat was clear. Ears: No inflammation. NECK: No bruits, no thyroid enlargement, no lymphadenopathy. CHEST: Equal movements with a few scattered wheezes in the upper lung huerta. HEART: Sounds are regular S1 and S2. No murmur. No S3 gallop. ABDOMEN: Soft, obese without masses. No organomegaly or tenderness. EXTREMITIES: No edema, no calf tenderness. NEUROLOGIC: Reflexes are 1+ with no gross motor deficits. Cranial nerves are grossly intact. RECTAL: Exam is deferred. SKIN: No lesions. Assessment and Plan Assessment and Plan IMPRESSION: 1. Myasthenia gravis with acute exacerbation. 2. Obstructive sleep apnea syndrome. 3. Rule out pulmonary embolism. 4. History of diabetes mellitus. 5. Depression. plan : 1. Continue to monitor Peak flows bid. 2. CPAP at HS 10 CM. May use home machine 3. IS qid . 4. Continue mestinon. 5. CBC,BMP Shelly Ashraf MD July 17, 2017 19:18
[2017-07-17] MEDS: MYCOPHENOLATE MOFETIL 500 MG TAB PO SCH (21:00)
[2017-07-17] MEDS: INSULIN DETEMIR 100 UNITS/ML VIAL SQ SCH (21:21)
[2017-07-18] VITALS (8 sets, daily range): BP systolic 122–147; BP diastolic 58–84; PULSE 47–90; RESP 18; TEMP 97.8–98.3; O2SAT 94–99
[2017-07-18] MEDS: SODIUM CHLOR 0.45% 1000 ML INJ 1,000 ML IV SCH (01:01)
[2017-07-18] MEDS: PYRIDOSTIGMINE BROMIDE 60 MG TAB PO SCH ×5 (01:01→22:16)
[2017-07-18] MEDS: FENOFIBRATE 145 MG TAB PO SCH (07:46)
[2017-07-18] MEDS: INSULIN ASPART SUPPLEMENTAL SCALE SQ SCH ×3 (07:47→21:00)
[2017-07-18] MEDS: PARoxetine HCL 20 MG TAB PO SCH (07:47)
[2017-07-18] MEDS: PANTOPRAZOLE SOD 20 MG DELAYED RELEASE TAB PO SCH (07:47)
[2017-07-18] MEDS: MYCOPHENOLATE MOFETIL 500 MG TAB PO SCH ×2 (07:47→22:16)
[2017-07-18] MEDS: SODIUM CHLORIDE 0.9% FLUSH 10 ML FLUSH IV FLUSH SCH ×2 (07:47→22:17)
--- NOTE | 2017-07-18 08:05 | HHI.PR ---
Subjective Remarks looks well Objective Vital Signs Date Time Temp Pulse Resp B/P (MAP) Pulse Ox O2 Delivery O2 Flow Rate FiO2 07/18/17 04:00 98.0 62 18 129/58 (81) 96 07/18/17 01:08 47 07/18/17 00:00 55 07/18/17 00:00 98.3 90 18 122/58 (79) 96 07/17/17 21:20 21 07/17/17 20:00 60 07/17/17 20:00 98.1 62 18 148/81 (103) 95 07/17/17 16:00 98.2 69 18 137/65 (89) 96 07/17/17 13:03 62 07/17/17 12:00 98.1 67 18 137/83 (101) 97 I/O 07/17/17 07/17/17 07/17/17 07/18/17 07/18/17 07/18/17 07:00 15:00 23:00 07:00 15:00 23:00 Intake Total 960 ml 950 ml Balance 960 ml 950 ml Intake Oral 960 ml IV Total 950 ml # Voids 5 4 # Bowel Movements 3 Result Diagram: 07/17/17 0658 07/17/17 0658 Objective Remarks nad voice strong up and around Assessment and Plan Assessment and Plan imp mg stable cta neg stress est todaty' he tells me nif yest better fatty large liver defer to med team on bipap 07/18/17 doing fine he will fu with his o/p neuro appt md Mcdaniel,David Simpson MD July 18, 2017 08:05
--- NOTE | 2017-07-18 09:06 | RADRPT ---
EXAM DATE/TIME: 07/17/2017 11:12 [place] COMPARISON: No previous studies available for comparison. INDICATIONS : Chest pain. Myasthenia gravis exacerbation. Angina. DOSE: 31.2 mCi Tc99m Myoview at stress. mCi Tc99m Myoview at rest. 0.4 mg Lexiscan STRESS SYMPTOMS: Nausea, chest pain, and lightheaded. EJECTION FRACTION: 57% MEDICAL HISTORY : Diabetes mellitus type 2. Hypercholesterolemia. Gastroesophageal reflux disease. SURGICAL HISTORY : Appendectomy. Cholecystectomy. Umbilical hernia repair. ENCOUNTER: Initial ACUITY: 1 day PAIN SCALE: 3/10 LOCATION: Substernal chest TECHNIQUE: The patient underwent pharmacologic stress with infusion of prescribed dose. Continuous ECG tracing was monitored during stress. Gated SPECT imaging was performed after stress and conventional SPECT i maging was performed at rest. The examination was performed on a SPECT/CT scanner, both attenuation and non-corrected datasets were reviewed. FINDINGS: DISTRIBUTION: The maximum perfused segment at stress is in the septal wall. PERFUSION STUDY: The pattern of perfusion at stress reveals decreased perfusion in the anterior wall. There is moderat e reversibility. GATED STUDY: There is intact wall motion and thickening without hypokinetic or dyskinetic segments. CONCLUSION: 1. Moderate reversibility in the anterior wall which may represent ischemia. 2. Normal ejection fraction. RISK CATEGORY: High (>3% Annual Mortality Rate) Sen Perez MD on July 18, 2017 at 8:57 Board Certified Radiologist. This report was verified electronically.
--- NOTE | 2017-07-18 09:08 | HHI.PR ---
Subjective Remarks Follow-up chest pain and shortness of breath. No recurrence of symptoms. Results of stress test discussed with patient, agrees with cardiac catheterization and consultation with cardiology Objective Vitals Vital Signs Date Time Temp Pulse Resp B/P (MAP) Pulse Ox O2 Delivery O2 Flow Rate FiO2 07/18/17 08:00 98.2 56 18 134/84 (101) 97 07/18/17 04:00 98.0 62 18 129/58 (81) 96 07/18/17 01:08 47 07/18/17 00:00 55 07/18/17 00:00 98.3 90 18 122/58 (79) 96 07/17/17 21:20 21 07/17/17 20:00 60 07/17/17 20:00 98.1 62 18 148/81 (103) 95 07/17/17 16:00 98.2 69 18 137/65 (89) 96 07/17/17 13:03 62 07/17/17 12:00 98.1 67 18 137/83 (101) 97 I/O 07/17/17 07/17/17 07/17/17 07/18/17 07/18/17 07/18/17 07:00 15:00 23:00 07:00 15:00 23:00 Intake Total 960 ml 950 ml Balance 960 ml 950 ml Intake Oral 960 ml IV Total 950 ml # Voids 5 4 # Bowel Movements 3 Result Diagram: 07/17/17 0658 07/17/17 [address] Angiography 07/16/17 1550 Signed Impressions: Service Date/Time: Sunday, July 16, 2017 16:23 - CONCLUSION: 1. No evidence of pulmonary embolism. 2. Mild cardiomegaly. 3. Enlarged fatty liver. 4. Mild splenomegaly. 5. 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 6. Fibrotic scarring within the left posterior lung base. 7. Tiny apical bleb on the right. Diomedes Mckeon MD Objective Remarks GENERAL: NAD, A&Ox3 CARDIOVASCULAR: Regular rhythm without murmurs, gallops, or rubs. Bradycardic RESPIRATORY: Breath sounds equal bilaterally. No accessory muscle use. GASTROINTESTINAL: Abdomen soft, non-tender, nondistended. MUSCULOSKELETAL: No cyanosis, or edema. SKIN: Warm and dry. NEURO: No focal neurological deficits. Procedures none A/P Problem List: (1) Myasthenia gravis ICD Code: G70.00 - Myasthenia gravis without (acute) exacerbation (2) Type 2 diabetes mellitus ICD Code: E11.9 - Type 2 diabetes mellitus without complications Status: Chronic Assessment and Plan 36-year-old male admitted secondary to possible myasthenia gravis exacerbation with anterior chest pain/tightness Myasthenia Gravis versus chest pain Low concern for neurological evaluation Troponin is normal Neurology continues to follow NIF testing was 25% Continue Mestinon and Cellcept Pulmonology consulted follow-up PFTs CTA negative for PE Stress test abnormal with ischemia. Start aspirin. Unable to start beta- young secondary to baseline bradycardia. Consult cardiology for cardiac catheterization Diabetes mellitus type 2 Follow blood sugars Insulin sliding scale Diabetic diet Hypertriglyceridemia Continue Tricor GERD Continue omeprazole JESUS Continue CPAP. Depression Continue Paxil Enlarged fatty liver with splenomegaly. Outpatient follow-up with gastroenterology. Weight reduction and management of lipids DVT prophylaxis SCDs/TEDs Discharge Planning Per cardiology Esvin Traylor MD July 18, 2017 09:08
[2017-07-18] MEDS: ASPIRIN EC 325 MG TABEC PO SCH (12:05)
[2017-07-18] MEDS: CYANOCOBALAMIN 1000 MCG/ML VIAL SQ SCH (12:05)
--- NOTE | 2017-07-18 13:52 | EKG ---
Date Performed: 07/18/2017 Time Performed: 12:02:33 PTAGE: 36 years EKG: Sinus rhythm NONSPECIFIC T-WAVE ABNORMALITY BORDERLINE ECG NO PREVIOUS TRACING DOCTOR: Wilian Oliver Interpretating Date/Time 07/18/2017 13:50:40
[2017-07-18] MEDS ORDERED: HEPARIN-NS/PF FLUSH BAG 2,000 ML IV FLUSH ONE (15:08)
[2017-07-18] MEDS ORDERED: MIDAZOLAM HCL 2 MG/2 ML VIAL ONE (15:09)
[2017-07-18] MEDS ORDERED: VERAPAMIL HCL 5 MG/2 ML VIAL ONE (15:09)
[2017-07-18] MEDS ORDERED: NITROGLYCERIN INJ 5 ML ONE (15:09)
[2017-07-18] MEDS ORDERED: HEPARIN SODIUM - IV 10,000 UNITS/10 ML VIAL ONE (15:09)
[2017-07-18] MEDS ORDERED: MISC INFORMATION XX ONE (16:15)
--- NOTE | 2017-07-18 16:21 | CATHPROC ---
[employer] HIS Report Study Information Study Number Admission Scheduled Start Study Start [id number] Jul 15 2017 8:20PM 07/18/2017 Jul 18 2017 3:02PM [place] [facility] Cardiac Catheterization Admit Source Facility Department Emergency department [facility] - [facility] Travel Counselor Physician and Clinical Staff Initial Gumaro [place] Finish Operator Tig Welder Jalyn Ramirez,HAZEL Recorder Kezia Calderon,RT(R) (BS) Scrub Evaristo ArangoRT(R) Procedures Performed Procedure Location (Site) Vessel Name Coronary Angiograms LCA Left Coronary Coronary Angiograms RCA Right Coronary L Heart Cath Wire insertion Radial (right) Radial Art. Equipment Time Assistant Sales Center Manager Description Size Mfg Part Number Used/Scraped TRANSDUCER, TRUWAVE [id number] 15:16 ROBLES TORO * Used W/STOCKCOCK *[id number] *[id number] *[id number] 15:16 [employer] PACK, CCL CUSTOM * Used *[id number] 15:16 [employer] SUPPORT, ARTERIAL ADULT [id number] *[id number] Used BAND, RADIAL COMPRESSION TR [id number] 15:31 [employer] MEDICAL 29CM Used LARGE 29 *[id number] 15:16 [employer] MEDICAL WIRE, EXCHANGE 260CM 3MMJ 260CM Used *[id number] 15:16 NAMIC MANIFOLD, 4 PORT * Used *[id number] 15:16 [employer]COMED OMNIPAQUE, 350 MG, 150ML 150ML [id number] Used 15:31 [employer]ED OMNIPAQUE, 350 MG, 150ML 150ML [id number] Used [id number] 15:16 [employer] BLANKET,WARM AIR CCL * Used *[id number] 15:48 TERUMO MEDICAL SHEATH, FR6 TERUMO (10CM) FR 6 Used *[id number] SHEATH, FR6 TRANSRADIAL [id number] 15:16 [employer] MEDICAL FR 6 Used SLENDER 10CM *[id number] History: Current Medications Medication Dosage/Unit Route Frequency Last Date/Time Taken ASA History: Allergies Allergy Reaction No Known Allergies History: Risk Factors Family History of Hypertension Dyslipidemia Premature CAD Yes Yes Yes Diabetes Diabetes Therapy History: Stress Tests Stress or Imaging Studies Performed Yes Standard Exercise Stress Test No Stress Echo No Stress Test SPECT Stress Test SPECT Result Yes Positive Stress Test CMR No Cardiac CTA Coronary Calcium Score No No History: Other Current Smoker Method Packs a Day Years Used Pack Years Yes Cigarettes 2 20 40 Labs Hgb (g/dl) Hct (%) WBC (l/cumm) Platelets (thousands) 11.60-17.00 35.00-51.00 4.00-11.00 150.00-450.00 14.6 42.2 6.5 202 Glucose (mg/dl) BUN (mg/dl) Creatinine (mg/dl) BUN:Creatinine (1:x) 74.00-106.00 7.00-18.00 0.50-1.30 10.00-20.00 105 13 0.9 14.4 K (meq/l) 3.50-5.10 4.4 Troponin I (ng/ml) CPK (u/l) CPK-MB (ng/ML) 0.02-0.05 26.00-308.00 0.50-3.60 0.02 232 Not Drawn Medication Medication Total Dose (Bolus/Oral) Medication Total Dosage/Unit 1% XYLOCAINE 1 mL FENTANYL 25 mcg RADIAL COCKTAIL 1 units VERSED 0.5 mg Medications (Bolus/Oral) Medication Time Given Dosage/Unit Administered By Reason VERSED 07/18/2017 3:36:27 PM 0.5 mg Jalyn Ramirez 0.5 mg VERSED given in lab by Jalyn Ramirez RN in Right Antecubital via Peripheral IV. FENTANYL 07/18/2017 3:37:35 PM 25 mcg Jalyn Ramirez 25 mcg FENTANYL given in lab by Jalyn Ramirez RN in Right Antecubital via Peripheral IV. 1% XYLOCAINE 07/18/2017 3:37:49 PM 1 mL Gumaro Zhou 1 mL 1% XYLOCAINE given in lab by Gumaro Zhou G in Right Radial via Subcutaneous. Ntg 200mcg Verapamil 2.5mg Heparin RADIAL COCKTAIL 07/18/2017 3:40:31 PM 1 units Gumaro Zhou 2000U RADIAL COCKTAIL given in lab by Jalyn Ramirez RN via Radial. Reason: Ntg 200mcg Heparin 5800U. Medication (Drip) Medication Time Given Dosage/Unit Concentration/Unit Diluent (ml) Solution IV Solutions 07/18/2017 3:21:30 PM 0 mL (IV) 500 NaCl .9 IV Solutions given in lab by Jalyn Ramirez RN in Right Antecubital via Peripheral IV. Pump/Drip Fl ow = 30 ml/hr using NaCl .9. Initial Case Assessment Cardiovascular HR Rhythm NIBP Chest Pain 54 reg 148/73 0 Edema Present Skin color Skin None Normal Warm Dry Circulatory - Right Pulses Posterior Tibial Femoral Radial 3 3 3 Scale (0,1,2,3,4,d) Circulatory - Left Pulses Posterior Tibial Femoral Radial 3 3 Scale (0,1,2,3,4,d) Circulatory - Lower Extremities Color Lower Right Color Lower Left Normal Normal Neurological State Oriented to time-place- Alert Moves all extremities person Respiration - General Respiration Rate SpO2 (%) (B/min) 17 98 Chronological Log Time Study Chronological Log 15:02:13 Patient arrived via Bed. 15:02:13 Patient Name, D.O.B, / Armband Verified By R.N. 15:02:14 Consent signed by the physician and the patient and verified by the [employer] Counsel[employer] staff. 15:02:16 Verbal Stimulation=2 Physical Stimulation=2 Airway=2 Respiration=2 TOTAL=8. (0=absent, 1=l imited, 2=present) 15:09:09 Presedation assessment performed by World Travel Counselor RN. 15:09:14 Allens test performed on the right radial and ulnar artery. 15:09:17 Patient has been NPO for More than 6Hrs. 15:09:18 Skin Breakdown large red bump on right forearm 15:09:19 Patient Warmer Placed on the Table. 15:09:27 Ruben Prominences Protected 15:09:28 A # 18 IV was noted in the Antecubital (right). Grade = 0 15:09:31 History and physical on the chart or being dictated. Assessment: Initial Case, HR=54 BPM, Rhythm=reg, HRDX=390/73 mmhg, Chest Pain=0, Edema=None, Co isac=Normal, Skin = Warm, Dry Right Pulses: Post Tib=3, Femoral=3, Radial=3 Left Pulses: Post Tib=3, Femoral=3 15:09:32 Lower Right Extremities: Color=Normal Lower Left Extremities: Color=Normal Neurological: State=Alert, Ox3, [place] Respiration: Resp=17 B/min, SpO2=98 % Vitals capture started with the following parameters, Patient=Adult, Interval=5 min, Initial Pr itzala=176 mmHg, 15:10:06 Deflation Rate=5 mmHg, Cuff placed on Right Ankle 15:11:22 HR=54 bpm, KMIJ=091/73 mmhg, SpO2=95.0 %, Resp=22 B/min, Pain=0, Mickey=10, Alfaro=2 15:12:21 Reference ECG taken 15:16:25 HR=53 bpm, JKNX=890/74 mmhg, SpO2=96.0 %, Resp=21 B/min, Pain=0, Mickey=10, Alfaro=2 15:19:49 Right Radial and groin(s) prepped with 2% chlorhexidine, and draped after a 3 min. waiting time. 15:20:47 HR=52 bpm, AEOF=484/78 mmhg, SpO2=98.0 %, Resp=16 B/min, Pain=0, Mickey=10, Alfaro=2 IV Solutions given in lab by Jalyn Ramirez, RN in Right Antecubital via Peripheral IV. Pump/D rip Flow = 30 ml/hr 15:21:30 using NaCl .9. 15:22:13 MD paged 15:24:28 MD arrived 15:26:19 HR=57 bpm, OTUQ=917/74 mmhg, SpO2=97.0 %, Resp=15 B/min, Pain=0, Mickey=10, Alfaro=2 15:27:37 Pressure channel 1 zeroed. 15:31:18 HR=49 bpm, SFUK=651/81 mmhg, SpO2=97.0 %, Resp=15 B/min, Pain=0, Mickey=10, Alfaro=2 Time Out. Correct patient, correct procedure, correct physician, power injector not loaded with contrast with surgical 15:36:15 team present. Time Out Concurred by MD and individual staff in procedure. 15:36:25 HR=51 bpm, JSRD=001/73 mmhg, SpO2=96.0 %, Resp=19 B/min, Pain=0, Mickey=10, Alfaro=2 15:36:27 0.5 mg VERSED given in lab by Jalyn Ramirez, RN in Right Antecubital via Peripheral IV. 15:36:30 Case Start 15:37:35 25 mcg FENTANYL given in lab by Jalyn Ramirez, RN in Right Antecubital via Peripheral IV. 15:37:49 1 mL 1% XYLOCAINE given in lab by Gumaro Zhou in Right Radial via Subcutaneous. 15:39:30 Access site was right Radial Artery. A SHEATH, FR6 TRANSRADIAL SLENDER 10CM FR 6 was advanced into the Radial (right) using the Perc utaneous 15:39:42 technique. 15:40:31 RADIAL COCKTAIL given in lab by Jalyn Ramirez RN via Radial. Reason: Ntg 200mcg Heparin 5800U. 15:41:24 HR=47 bpm, DNYJ=101/89 mmhg, SpO2=97.0 %, Resp=16 B/min, Pain=0, Mickey=10, Alfaro=2 A JR 4.0 INFINITI CATHETER FR 5 was advanced over a wire. OMNIPAQUE, 350 MG, 150ML 150ML was us ed for 15:42:09 injections. Recorded Pressure: LV, HR=69, Condition=Condition 1 15:43:15 (Left Ventricle) LV 128/0/7 Recorded Pressure: LV, Ao, HR=63, Condition=Condition 1 15:43:31 (Left Ventricle) LV 119/-8/3, (Aorta) Ao 101/64/82 15:44:38 The RCA was injected and visualized at various angles. OMNIPAQUE, 350 MG, 150ML 150ML used . Recorded Pressure: Ao, HR=56, Condition=Condition 1 15:44:45 (Aorta) Ao 102/66/84 15:45:52 HR=56 bpm, GATK=859/72 mmhg, SpO2=94.0 %, Resp=17 B/min, Pain=0, Mickey=10, Alfaro=2 15:46:29 Catheter was removed A SHEATH, FR6 TERUMO (10CM) FR 6 was exchanged in the Radial (right). This was necessary in ord er to achieve 15:48:45 vascular hemostasis. A JL 3.5 INFINITI CATHETER FR 5 was advanced over a wire. OMNIPAQUE, 350 MG, 150ML 150ML was us ed for 15:49:57 injections. 15:50:43 Wire removed 15:50:49 HR=56 bpm, ZCRL=919/83 mmhg, SpO2=96.0 %, Resp=9 B/min, Pain=0, Mickey=10, Alfaro=2 15:53:19 The LCA was injected and visualized at various angles. OMNIPAQUE, 350 MG, 150ML 150ML use d. 15:55:54 HR=59 bpm, UPPM=458/87 mmhg, SpO2=98.0 %, Resp=15 B/min, Pain=0, Mickey=10, Alfaro=2 15:56:02 A WIRE, EXCHANGE 260CM 3MMJ 260CM was inserted via Radial (right). 15:56:14 Catheter was removed 15:56:15 Wire removed 15:56:19 Case End 16:00:41 Catheter(s) removed without difficulty Radial Compression Device Used. 11 mLs of air placed in BAND, RADIAL COMPRESSION TR LARGE 29 2 9CM. Affected 16:00:46 hand 98 % O2 saturation. 16:01:17 No case complications noted. 16:01:25 Bedside Report will be given. 16:01:26 HR=55 bpm, KCWA=102/85 mmhg, Resp=15 B/min, Pain=0, Mickey=10, Alfaro=2 16:01:28 A Left Heart Cath was performed. 16:06:23 FYIT=250/82 mmhg, Pain=0, Mickey=10, Alfaro=2 16:08:49 Patient moved to stretcher 16:10:23 Vitals capture stopped. End Study - Contrast Media Used In Study Contrast Total Opened (mL) Total Used (mL) Total Wasted (mL) Omnipaque 35 35 0 End Study - Maximum Contrast Load Max Contrast Load (mL) 795.5 End Study - Radiation Exposure Fluoro Time (minutes) 3.5 End Study - Sheaths Sheaths Pulled By Sheath Hold Time (min) Gumaro Zhou End Study - Patient Disposition Complications Transferred To Interventional Outcome No World Travel Counselor Holding No attempt made
[2017-07-18] MEDS ORDERED: IOHEXOL 350 MG/ML 50 ML BTL (for Cath Lab) OTHER ONE (16:29)
[2017-07-18] MEDS: INSULIN DETEMIR 100 UNITS/ML VIAL SQ SCH (22:17)
[2017-07-19] VITALS (10 sets, daily range): BP systolic 119–141; BP diastolic 60–73; PULSE 50–71; RESP 16–20; TEMP 97.7–98.9; O2SAT 95–97
[2017-07-19] MEDS: PYRIDOSTIGMINE BROMIDE 60 MG TAB PO SCH ×6 (00:15→22:32)
--- NOTE | 2017-07-19 00:47 | MB ---
cc: Gumaro Zhou DO DATE: 07/18/2017 REASON FOR CONSULTATION: Chest pain, abnormal stress test. HISTORY OF PRESENT ILLNESS: Lewis Queen is a pleasant 36-year-old male who presented to [facility] Emergency Room on 07/15/2017 due to chest pain and shortness of breath. He states that he felt like his lungs were congested, although he was not coughing up any mucus. He called his neurologist and there was a concern for early myasthenia gravis crisis and recommended he go to the emergency room for further evaluation. He was seen by Neurology and it was not felt that his chest pain and shortness of breath was due to myasthenia gravis since he underwent stress testing which was abnormal with possible anterior ischemia. I was asked to see him for further consideration of cardiac catheterization. In seeing him, he states that the congestion he has felt around his chest made it difficult to breathe. He states that he has some chest pain, which is somewhat like a pressure on the left side, although it is difficult to ascertain the true nature as the patient is very vague about it. He has been more significantly short of breath with activity, but he blames that on his myasthenia gravis. In seeing him, he is currently hemodynamically stable without chest pain or shortness of breath. PAST MEDICAL HISTORY: 1. Myasthenia gravis. 2. Type 2 diabetes mellitus. 3. Obstructive sleep apnea, on CPAP at home. 4. Gastroesophageal reflux disease. 5. Depression. 6. Hypertriglyceridemia. 7. Hypertension. PAST SURGICAL HISTORY: 1. Umbilical hernia repair. 2. Appendectomy. 3. Cholecystectomy. 4. Bilateral ACL reconstruction. 5. Port placement for plasmapheresis and removal. ALLERGIES: NO KNOWN DRUG ALLERGIES. MEDICATIONS: 1. Mestinon 60 mg every 4 hours. 2. Fenofibrate 145 mg daily. 3. Paxil 10 mg daily. 4. Omeprazole 20 mg daily. 5. Metformin 500 mg b.i.d. 6. Lantus 40 units subcutaneous every night. 7. Glipizide 2.5 mg daily. 8. CellCept 1000 mg b.i.d. FAMILY HISTORY: Denies sudden cardiac within the family. SOCIAL HISTORY: The patient previously smoked 1-2 packs a day for 20 years. He quit 3 months ago. He rarely uses alcohol. He denies drug abuse. 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 REVIEW OF SYSTEMS: Fourteen systems were reviewed including osteopathic pertinent positives and negatives above, otherwise negative. PHYSICAL EXAMINATION: VITAL SIGNS: Temperature 97.9, heart rate 63, blood pressure 147/82, respirations 18, pulse oximetry 94% on room air. GENERAL: The patient appears well in no acute distress, alert, awake and oriented x3. HEENT: Extraocular muscles intact. Mucous membranes moist. NECK: Supple. No JVD at 45 degrees. No carotid bruits heard bilaterally. Carotid upstroke is brisk in nature. HEART: Regular rate and rhythm. Positive first and second heart sounds with no noted murmurs, gallops or rubs. LUNGS: Clear to auscultation bilaterally. No wheezes, rales or rhonchi. ABDOMEN: Soft, nontender, nondistended. No organomegaly noted. EXTREMITIES: Show trace edema bilaterally. Femoral and distal pulses are intact bilaterally. NEUROLOGIC: No focal deficits. SKIN: Warm, dry and intact. OSTEOPATHIC: No kyphoscoliosis, lordosis or paraspinal tender points. LABORATORY DATA: Hemoglobin 14.6, hematocrit 42.2, platelets 202. Potassium 4.4, BUN 13, creatinine 0.9. Troponin less than 0.02. Electrocardiogram (07/18/2017 at 12:02): Sinus rhythm, nonspecific ST-T wave changes. IMPRESSIONS: 1. Chest pain, atypical for coronary insufficiency. 2. Shortness of breath with activity. 3. Myasthenia gravis. 4. Abnormal stress test. 5. Diabetes mellitus. 6. Hypertriglyceridemia. 7. Obstructive sleep apnea on continuous positive airway pressure. RECOMMENDATIONS: 1. Mr. Queen presented with chest pain which was atypical for coronary insufficiency, but underwent stress testing which showed possible anterior ischemia. Because of this, he will be recommended cardiac catheterization. 2. Risks, benefits, and alternatives were described to him and his and he consented to such. 3. We will plan on checking a 2-D echo to look at his overall left ventricular function, cardiac structure and possible valvulopathies. 4. He will continue on Tricor for his hypertriglyceridemia. 5. Further recommendations will be made after coronary visualization. Thank you for allowing me to see Lewis Queen. If there are any questions, please do not hesitate to call. DO TONA Renee/ADAM , 12:10 AM , 12:46 AM
--- NOTE | 2017-07-19 01:20 | MA ---
cc: Gumaro Zhou DO DATE: 07/18/2017 DATE OF PROCEDURE: 07/18/2017. PROCEDURE: Left heart catheterization, coronary angiogram, moderate sedation, 20 minutes. PREPROCEDURE DIAGNOSIS: Chest pain, shortness of breath, abnormal stress test. POSTPROCEDURE DIAGNOSIS: Minor coronary artery disease. MEDICATIONS: Versed 0.5 mg, fentanyl 25 mcg, nitroglycerine 200 mcg, heparin 5800 units. CONTRAST USED: 35 mL FLUOROSCOPY: 3.5 minutes. MODERATE SEDATION: 20 minutes. FRAILTY SCORE: Two. ESTIMATED BLOOD LOSS: 10 mL PROCEDURAL SUMMARY: Lewis Queen is a pleasant 36-year-old male who presented to [facility] Emergency Room due to chest pain and shortness of breath. He was found to have an abnormal stress test and recommended cardiac catheterization. Risks, benefits and alternatives were explained to him and he consented to such. He was brought to the lab and prepped in the usual sterile fashion. The right radial artery was accessed using a modified Seldinger technique and placement of a 5/6-Sol[place] Islander slender sheath. This is easily aspirated and flushed. A JR4 was advanced over a J-wire to the ascending aorta and across the aortic valve for measurement of left ventricular pressure. This was pulled back across the aortic valve, showing no significant gradient of aortic stenosis. JR4 was used for selective angiography of the right coronary artery system. This is exchanged out for a JL3.5, which was used for selective angiography of the left coronary artery system. JL3.5 was removed over a J wire. A radial band was placed over the arteriotomy site for hemostasis. 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 FINDINGS: LEFT MAIN: Normal-sized vessel with adequate reflux. It bifurcates into an LAD and circumflex. LAD, mild luminal irregularities throughout the proximal portion, with a 30% lesion in the mid portion and distally no significant disease. It gives off 1 major diagonal with no significant disease. LEFT CIRCUMFLEX: Normal-sized vessel, with no significant disease. RIGHT CORONARY ARTERY: Normal-sized vessel, with mild luminal irregularities distally. It gives off a PDA as well as 2 posterolateral branches and no significant disease. LEFT VENTRICULAR END-DIASTOLIC PRESSURE: 10. IMPRESSION: 1. Mild coronary artery disease by cardiac catheterization. 2. Diabetes mellitus. 3. Obstructive sleep apnea. RECOMMENDATIONS: 1. Mr. Queen appears to have mild coronary artery disease and he will be recommended continued medical therapy. 2. His metformin will need to be held 48 hours post-procedure. 3. We will check a 2D echo to look at his overall left ventricular function, cardiac structure and possible valvulopathies. 4. If no complications noted on his echocardiogram, he may be discharged home from a cardiovascular standpoint. Thank you for allowing me to see Lewis Queen. If there are any questions, please do not hesitate to call. DO TONA Renee/JOSEPH , 12:57 AM , 01:18 AM
[2017-07-19] MEDS ORDERED: ASPI81TA23 PO (06:04)
--- NOTE | 2017-07-19 07:52 | HHI.PR ---
Subjective Remarks looks well Objective Vital Signs Date Time Temp Pulse Resp B/P (MAP) Pulse Ox O2 Delivery O2 Flow Rate FiO2 07/19/17 04:52 50 07/19/17 04:00 97.7 54 16 130/69 (89) 97 07/19/17 00:42 97 21 07/19/17 00:00 98.0 65 16 135/73 (93) 95 07/18/17 20:00 98.2 68 18 134/83 (100) 96 07/18/17 20:00 87 07/18/17 16:13 99 Room Air 07/18/17 16:00 97.8 60 18 144/78 (100) 94 07/18/17 12:00 97.9 63 18 147/82 (103) 94 07/18/17 09:47 60 07/18/17 08:00 98.2 56 18 134/84 (101) 97 I/O 07/18/17 07/18/17 07/18/17 07/19/17 07/19/17 07/19/17 07:00 15:00 23:00 07:00 15:00 23:00 Intake Total 950 ml Balance 950 ml IV Total 950 ml # Voids 4 Result Diagram: 07/17/17 0658 07/17/17 0658 Objective Remarks nad voice strong up and around Assessment and Plan Assessment and Plan imp mg stable cta neg stress est todaty' he tells me nif yest better fatty large liver defer to med team on bipap 07/18/17 doing fine he will fu with his o/p neuro appt 07/19/17 cath neg for echo still well mg mckee fu o/p new neuro next week as planned will sign off David Mcdaniel MD July 19, 2017 07:52
[2017-07-19] MEDS: ASPIRIN EC 325 MG TABEC PO SCH (08:31)
[2017-07-19] MEDS: PANTOPRAZOLE SOD 20 MG DELAYED RELEASE TAB PO SCH (08:31)
[2017-07-19] MEDS: FENOFIBRATE 145 MG TAB PO SCH (08:31)
[2017-07-19] MEDS: PARoxetine HCL 20 MG TAB PO SCH (08:32)
[2017-07-19] MEDS: MYCOPHENOLATE MOFETIL 500 MG TAB PO SCH ×2 (08:32→22:36)
[2017-07-19] MEDS: CYANOCOBALAMIN 1000 MCG/ML VIAL SQ SCH (08:32)
[2017-07-19] MEDS: INSULIN ASPART SUPPLEMENTAL SCALE SQ SCH ×4 (08:33→21:00)
[2017-07-19] MEDS: SODIUM CHLORIDE 0.9% FLUSH 10 ML FLUSH IV FLUSH SCH ×2 (08:33→22:33)
--- NOTE | 2017-07-19 08:37 | HHI.PR ---
Subjective Remarks Follow-up abnormal stress test. Cardiac cath with mild CAD. Stable for discharge pending echocardiogram. Patient to follow-up PFT results with PCP. He has no new complaints feels better today Objective Vitals Vital Signs Date Time Temp Pulse Resp B/P (MAP) Pulse Ox O2 Delivery O2 Flow Rate FiO2 07/19/17 08:28 98.2 52 20 141/60 (87) 95 07/19/17 04:52 50 07/19/17 04:00 97.7 54 16 130/69 (89) 97 07/19/17 00:42 97 21 07/19/17 00:00 98.0 65 16 135/73 (93) 95 07/18/17 20:00 98.2 68 18 134/83 (100) 96 07/18/17 20:00 87 07/18/17 16:13 99 Room Air 07/18/17 16:00 97.8 60 18 144/78 (100) 94 07/18/17 12:00 97.9 63 18 147/82 (103) 94 07/18/17 09:47 60 I/O 07/18/17 07/18/17 07/18/17 07/19/17 07/19/17 07/19/17 07:00 15:00 23:00 07:00 15:00 23:00 Intake Total 950 ml Balance 950 ml IV Total 950 ml # Voids 4 Result Diagram: 07/17/17 0658 07/17/17 0658 Imaging Last Impressions Myocardial Perfusion Scan Nuc Med 07/17/17 0000 Signed Impressions: Service Date/Time: Monday, July 17, 2017 11:12 - CONCLUSION: 1. Moderate reversibility in the anterior wall which may represent ischemia. 2. Normal ejection fraction. RISK CATEGORY: High (>3%% Annual Mortality Rate) Sen Perez MD CT Angiography 07/16/17 1550 Signed Impressions: Service Date/Time: Sunday, July 16, 2017 16:23 - CONCLUSION: 1. No evidence of pulmonary embolism. 2. Mild cardiomegaly. 3. Enlarged fatty liver. 4. Mild splenomegaly. 5. 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 6. Fibrotic scarring within the left posterior lung base. 7. Tiny apical bleb on the right. Diomedes Mckeon MD Objective Remarks GENERAL: NAD, A&Ox3 CARDIOVASCULAR: Regular rhythm without murmurs, gallops, or rubs. Bradycardic RESPIRATORY: Breath sounds equal bilaterally. No accessory muscle use. GASTROINTESTINAL: Abdomen soft, non-tender, nondistended. MUSCULOSKELETAL: No cyanosis, or edema. SKIN: Warm and dry. NEURO: No focal neurological deficits. Procedures Cardiac catheterization A/P Problem List: (1) Myasthenia gravis ICD Code: G70.00 - Myasthenia gravis without (acute) exacerbation (2) Type 2 diabetes mellitus ICD Code: E11.9 - Type 2 diabetes mellitus without complications Status: Chronic Assessment and Plan 36-year-old male admitted secondary to possible myasthenia gravis exacerbation with anterior chest pain/tightness Myasthenia Gravis versus chest pain Low concern for MG exac Troponin is normal Neurology continues to follow NIF testing was 25% Continue Mestinon and Cellcept Pulmonology consulted follow-up PFTs CTA negative for PE Stress test abnormal with ischemia. Cardiac catheterization with mild CAD continue aspirin. Unable to start beta-young secondary to baseline bradycardia. Patient states he had recent lipid profile and A1c 2 weeks ago patient to follow-up with PCP. Cardiology ordered echocardiogram will follow- up results Diabetes mellitus type 2 reportedly A1c of 6 2 weeks ago Follow blood sugars Insulin sliding scale Diabetic diet Hypertriglyceridemia Continue Tricor GERD Continue omeprazole JESUS Continue CPAP. Depression Continue Paxil Enlarged fatty liver with splenomegaly. Outpatient follow-up with gastroenterology. Weight reduction and management of lipids DVT prophylaxis SCDs/TEDs Discharge Planning Echo pending Esvin Traylor MD July 19, 2017 08:37
--- NOTE | 2017-07-19 12:29 | HHI.PR ---
Subjective Remarks Feels OK. No SOB at rest. Cardiac cath was unremarkable. O2 sat 98 on RA. Will go home Objective Vital Signs Date Time Temp Pulse Resp B/P (MAP) Pulse Ox O2 Delivery O2 Flow Rate FiO2 07/19/17 12:16 97.8 60 20 121/68 (85) 95 07/19/17 08:28 98.2 52 20 141/60 (87) 95 07/19/17 08:00 51 07/19/17 04:52 50 07/19/17 04:00 97.7 54 16 130/69 (89) 97 07/19/17 00:42 97 21 07/19/17 00:00 98.0 65 16 135/73 (93) 95 07/18/17 20:00 98.2 68 18 134/83 (100) 96 07/18/17 20:00 87 07/18/17 16:13 99 Room Air 07/18/17 16:00 97.8 60 18 144/78 (100) 94 I/O 07/18/17 07/18/17 07/18/17 07/19/17 07/19/17 07/19/17 07:00 15:00 23:00 07:00 15:00 23:00 Intake Total 950 ml Balance 950 ml IV Total 950 ml # Voids 4 1 # Bowel Movements 1 Result Diagram: 07/17/1765707/17/17657 Objective Remarks GENERAL: This moderately obese, young, white male is alert and oriented, no acute distress. No pallor icterus, cyanosis or lymphadenopathy. HEENT: Head is normocephalic. Pupils reactive and equal. Nasal mucosa injected. Throat was clear. Ears: No inflammation. NECK: No bruits, no thyroid enlargement, no lymphadenopathy. CHEST: Equal movements with clear lungs HEART: Sounds are regular S1 and S2. No murmur. No S3 gallop. ABDOMEN: Soft, obese without masses. No organomegaly or tenderness. EXTREMITIES: No edema, no calf tenderness. NEUROLOGIC: Reflexes are 1+ with no gross motor deficits. Cranial nerves are grossly intact. SKIN: No lesions. Assessment and Plan Assessment and Plan IMPRESSION: 1. Myasthenia gravis with acute exacerbation. 2. Obstructive sleep apnea syndrome. 3. Rule out pulmonary embolism. 4. History of diabetes mellitus. 5. Depression. plan : 1. D/C Peak Flows 2. CPAP at HS 10 CM. May use home machine 3. IS qid . 4. Continue mestinon. Q4H 5. Home per Dr Traylor 6. Will see as OP in 3 weeks Shelly Ashraf MD July 19, 2017 12:29
[2017-07-19 15:37] LABS: METHYLMALONIC ACID 0.15 nmol/mL (<=0.40)
--- NOTE | 2017-07-19 15:54 | HHI.DS ---
Discharge Summary Admission Date July 15, 2017 at 20:20 Discharge Date: July 19, 2017 Admitting Diagnosis Myasthenia Gravis with concern for early crisis . (1) Myasthenia gravis ICD Code: G70.00 - Myasthenia gravis without (acute) exacerbation Diagnosis: Principal (2) Type 2 diabetes mellitus ICD Code: E11.9 - Type 2 diabetes mellitus without complications Diagnosis: Principal Status: Chronic Procedures Cardiac catheterization Brief History - From Admission Mr. Queen is a pleasant 36-year-old male who moved here from [place], [place] in September 2016 and has a history of myasthenia gravis diagnosed in 2009 who presented tot he ER in [place] complaining of lung congestion with ineffective cough. The case was discussed with the quality control lead neurologist who had concern for early myasthenia gravis crisis and recommended [place] [facility] [place]. The patient is seen in his hospital room. He reports symptoms started on , July 06 while he was watching the [employer] draft. He ate some buffalo chicken pizza and felt like he had heartburn afterwards. He states he developed what felt like chest congestion afterwards and was concerned that he may have aspirated in his sleep because his CPAP tubing smelled like buffalo sauce. He has had persistent chest congestion since then and has tried to cough but can only "clear my throat". He reports feeling warm yesterday but has no recorded fever and denies chills. He has chronically loose stools but denies nausea or vomiting or any recent changes in stool pattern. He denies any weakness. He reports no history of respiratory failure or intubation. CBC/BMP: 07/17/17 0658 07/17/17 0658 Significant Findings Laboratory Tests Test 07/16/17 16:18 07/17/17 06:58 Monocytes (%) (Auto) 11.2 % (0.0-8.0) Eosinophils (%) (Auto) 4.2 % (0.0-4.0) Aspartate Amino Transf (AST/SGOT) 41 U/L (15-37) Imaging Last Impressions Myocardial Perfusion Scan Nuc [facility] 07/17/17 0000 Signed Impressions: Service Date/Time: Monday, July 17, 2017 11:12 - CONCLUSION: 1. Moderate reversibility in the anterior wall which may represent ischemia. 2. Normal ejection fraction. RISK CATEGORY: High (>3%% Annual Mortality Rate) Sen Perez MD CT Angiography 07/16/17 1550 Signed Impressions: Service Date/Time: Sunday, July 16, 2017 16:23 - CONCLUSION: 1. No evidence of pulmonary embolism. 2. Mild cardiomegaly. 3. Enlarged fatty liver. 4. Mild splenomegaly. 5. 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 6. Fibrotic scarring within the left posterior lung base. 7. Tiny apical bleb on the right. Diomedes Mckeon MD PE at Discharge GENERAL: NAD, A&Ox3 CARDIOVASCULAR: Regular rhythm without murmurs, gallops, or rubs. Bradycardic RESPIRATORY: Breath sounds equal bilaterally. No accessory muscle use. GASTROINTESTINAL: Abdomen soft, non-tender, nondistended. MUSCULOSKELETAL: No cyanosis, or edema. SKIN: Warm and dry. NEURO: No focal neurological deficits. Hospital Course 36-year-old male admitted secondary to possible myasthenia gravis exacerbation with anterior chest pain/tightness Chest pain and SOB Troponin is normal Pulmonology consulted follow-up PFTs CTA negative for PE Stress test abnormal with ischemia. Cardiac catheterization with mild CAD continue aspirin. Unable to start beta-young secondary to baseline bradycardia. Patient states he had recent lipid profile and A1c 2 weeks ago patient to follow-up with PCP. Rf modification. Cardiology ordered echocardiogram will follow-up results Myasthenia Gravis Low concern for MG exac Neurology continues to follow NIF testing was 25% Continue Mestinon and Cellcept Diabetes mellitus type 2 reportedly A1c of 6 2 weeks ago Follow blood sugars Insulin sliding scale Diabetic diet Hypertriglyceridemia Continue Tricor GERD Continue omeprazole JESUS Continue CPAP. Depression Continue Paxil Enlarged fatty liver with splenomegaly. Outpatient follow-up with gastroenterology. Weight reduction and management of lipids DVT prophylaxis SCDs/TEDs Pt Condition on Discharge: Stable Discharge Disposition: Discharge Home Discharge Time: > 30 minutes Discharge Instructions DIET: Follow Instructions for: Heart Healthy Diet, Diabetic Diet Activities you can perform: Regular-No Restrictions Activities to Avoid: Driving Follow up Referrals: Gastroenterology - 1 Week Neurology - 1 Week PCP Follow-up - 2-3 Days New Medications: Aspirin (Aspirin EC) 81 Mg Tabdr 81 MG PO DAILY for Prevent Blood Clot, #30 TAB 0 Refills Continued Medications: Fenofibrate (Fenofibrate) 145 Mg Tab 145 MG PO DAILY, #30 TAB 0 Refills Glipizide ER (Glipizide ER) 2.5 Mg Estefania 2.5 MG PO DAILY for Blood Sugar Management, #30 TAB 0 Refills Take with breakfast or first main meal of the day Insulin Glargine Inj (Lantus Inj) 1,000 Unit/10 Ml Vial 40 UNITS SQ HS for Blood Sugar Management, VIAL 0 Refills Loperamide (Imodium A-D) 2 Mg Capsule 2 MG PO DAILY PRN for DIARRHEA, CAP 0 Refills One capsule after each loose stool. Not to exceed 8 tablets per day. Metformin ER (Metformin ER) 500 Mg Estefania 500 MG PO BID for Blood Sugar Management, TAB 0 Refills Restart on 07/21 With evening meal Mycophenolate (Cellcept) 250 Mg Cap 1000 MG PO BID for Immunosuppression, #240 CAP 0 Refills Omeprazole (Omeprazole) 20 Mg Tab 20 MG PO DAILY, #30 TAB 0 Refills Paroxetine (Paxil) 10 Mg Tab 10 MG PO DAILY, #30 TAB 0 Refills Pyridostigmine (Mestinon) 60 Mg Tab 60 MG PO Q4HR for Manage Myastenia Gravis, #180 TAB 0 Refills Esvin Traylor MD July 19, 2017 15:54
--- NOTE | 2017-07-19 16:30 | PD.CARD.PN ---
Subjective Subjective Remarks No events overnight Awaiting echo results before discharge Objective Medications Current Medications Medications (Trade) Dose Ordered Sig/Tiff Route Start Time Stop Time Status Last Admin (NS Flush) 2 ml UNSCH PRN IV FLUSH 07/15/17 18:00 (NS Flush) 2 ml BID IV FLUSH 07/15/17 21:00 07/19/17 08:33 (Tylenol) 650 mg Q4H PRN PO 07/15/17 18:00 (Zofran Inj) 4 mg Q6H PRN IVP 07/15/17 18:00 (Narcan Inj) 0.4 mg UNSCH PRN IV PUSH 07/15/17 18:00 (Milk Of Magnesia Liq) 30 ml Q12H PRN PO 07/15/17 18:00 (Senokot) 17.2 mg Q12H PRN PO 07/15/17 18:00 (Dulcolax Supp) 10 mg DAILY PRN RECTAL 07/15/17 18:00 (Lactulose Liq) 30 ml DAILY PRN PO 07/15/17 18:00 (Mestinon) 60 mg Q4HR PO 07/16/17 00:00 07/19/17 16:07 (Protonix) 20 mg DAILY PO 07/16/17 09:00 07/19/17 08:31 (Paxil) 10 mg DAILY PO 07/16/17 09:00 07/19/17 08:32 (D50w (Vial) Inj) 50 ml UNSCH PRN IV PUSH 07/15/17 22:45 (Glucagon Inj) 1 mg UNSCH PRN OTHER 07/15/17 22:45 (NovoLOG SUPPLEMENTAL SCALE) 1 ACHS SLIDING SCALE SQ 07/16/17 08:00 (Tricor) 145 mg DAILY PO 07/16/17 09:00 07/19/17 08:31 (Levemir Inj) 40 units HS SQ 07/16/17 21:00 07/18/17 22:17 (Albuterol Neb) 1.25 mg Q4HR NEB PRN NEB 07/16/17 16:00 (Cellcept) 1,000 mg BID PO 07/17/17 21:00 07/19/17 08:32 (Vitamin B12 Inj) 1,000 mcg DAILY SQ 07/18/17 09:15 5/11/18 09:14 07/19/17 08:32 (Ecotrin Ec) 325 mg DAILY PO 07/18/17 12:00 07/19/17 08:31 Vital Signs / I&O Vital Signs Date Time Temp Pulse Resp B/P (MAP) Pulse Ox O2 Delivery O2 Flow Rate FiO2 07/19/17 12:41 56 07/19/17 12:16 97.8 60 20 121/68 (85) 95 07/19/17 08:28 98.2 52 20 141/60 (87) 95 07/19/17 08:00 51 07/19/17 04:52 50 07/19/17 04:00 97.7 54 16 130/69 (89) 97 07/19/17 00:42 97 21 07/19/17 00:00 98.0 65 16 135/73 (93) 95 07/18/17 20:00 98.2 68 18 134/83 (100) 96 07/18/17 20:00 87 I/O 07/18/17 07/18/17 07/18/17 07/19/17 07/19/17 07/19/17 07:00 15:00 23:00 07:00 15:00 23:00 Intake Total 950 ml Balance 950 ml IV Total 950 ml # Voids 4 1 # Bowel Movements 1 Physical Exam GENERAL: NAD, AAOx3 SKIN: Warm and dry. HEAD: Atraumatic. Normocephalic. EYES: Pupils equal and round. No scleral icterus. No injection or drainage. ENT: No nasal bleeding or discharge. Mucous membranes pink and moist. NECK: Trachea midline. No JVD. CARDIOVASCULAR: Regular rate and rhythm. RESPIRATORY: No accessory muscle use. Clear to auscultation. Breath sounds equal bilaterally. GASTROINTESTINAL: Abdomen soft, non-tender, nondistended. Hepatic and splenic margins not palpable. MUSCULOSKELETAL: Extremities without clubbing, cyanosis, or edema. No obvious deformities. Right radial no hematoma, neurovascularly no complaints NEUROLOGICAL: Awake and alert. No obvious cranial nerve deficits. Motor grossly within normal limits. Five out of 5 muscle strength in the arms and legs. Normal speech. PSYCHIATRIC: Appropriate mood and affect; insight and judgment normal. Assessment and Plan Problem List: (1) Chest pain ICD Codes: R07.9 - Chest pain, unspecified (2) Type 2 diabetes mellitus ICD Codes: E11.9 - Type 2 diabetes mellitus without complications Status: Chronic (3) Myasthenia gravis ICD Codes: G70.00 - Myasthenia gravis without (acute) exacerbation Assessment and Plan 1) Atypical chest pain Abnormail stress test Mild CAD by cardiac cath 2) JESUS 3) HTN 4) If 2D echo with no problems, discharge today Gumaro Zhou DO July 19, 2017 16:30
--- NOTE | 2017-07-19 18:57 | ECHRPT ---
Indication: Chest pain, unspecified CONCLUSIONS Normal left ventricular size and wall thickness. The left ventricular systolic function is normal with an estimated ejection fraction of 60%. Left ventricular diastolic function parameters are normal. There is trace tricuspid valve regurgitation. The estimated pulmonary arterial pressure is 21 mmHg. BP: 141 / 60 HR: 52 Rhythm: Sinus MEASUREMENTS (Male / Female) Normal Values Technical Quality:Fair 2D ECHO LV Diastolic Diameter PLAX 5.4 cm 4.2 - 5.9 / 3.9 - 5.3 cm LV Systolic Diameter PLAX 4.0 cm IVS Diastolic Thickness 1.0 cm 0.6 - 1.0 / 0.6 - 0.9 cm LVPW Diastolic Thickness 1.0 cm 0.6 - 1.0 / 0.6 - 0.9 cm LV Relative Wall Thickness 0.4 LVOT Diameter 2.3 cm M-MODE Aortic Root Diameter MM 3.2 cm LA Systolic Diameter MM 4.1 cm LA Ao Ratio MM 1.3 AV Cusp Separation MM 2.4 cm DOPPLER AV Peak Velocity 130.0 cm/s AV Peak Gradient 6.8 mmHg LVOT Peak Velocity 81.4 cm/s LVOT Peak Gradient 2.7 mmHg AV Area Cont Eq pk 2.6 cm Mitral E Point Velocity 89.8 cm/s Mitral A Point Velocity 37.5 cm/s Mitral E to A Ratio 2.4 LV E' Lateral Velocity 11.8 cm/s Mitral E to LV E' Lateral Ratio 7.6 TR Peak Velocity 167.0 cm/s TR Peak Gradient 11.2 mmHg Right Atrial Pressure 10.0 mmHg Pulmonary Artery Systolic Pressu 21.2 mmHg Right Ventricular Systolic Press 21.2 mmHg PV Peak Velocity 154.0 cm/s PV Peak Gradient 9.5 mmHg FINDINGS LEFT VENTRICLE Normal left ventricular size and wall thickness. The left ventricular systolic function is normal wi th an estimated ejection fraction of 60%. Left ventricular diastolic function parameters are normal. RIGHT VENTRICLE Normal right ventricular size and systolic function. LEFT ATRIUM The left atrial size is normal. RIGHT ATRIUM The right atrial size is normal. ATRIAL SEPTUM Normal atrial septal thickness without atrial level shunting by limited color doppler interrogation. AORTA The aortic root and proximal ascending aorta are normal in size on limited imaging. MITRAL VALVE Structurally normal mitral valve. No mitral valve stenosis or regurgitation. AORTIC VALVE Trileaflet aortic valve. No aortic valve stenosis or regurgitation. TRICUSPID VALVE There is trace tricuspid valve regurgitation. The estimated pulmonary arterial pressure is 21.2 mmHg. PULMONARY VALVE No pulmonary valve regurgitation or stenosis. VESSELS The inferior vena cava is normal in size. PERICARDIUM No pericardial effusion. Chloe Baxter MD, FACC (Electronically Signed) Final Date:19 Jul 2017 18:56
[2017-07-19] MEDS: INSULIN DETEMIR 100 UNITS/ML VIAL SQ SCH (22:33)
[2017-07-19 23:52] LABS: STRIATED MUCLE AB TITER ND (<1:40)
[2017-07-20] VITALS: BP 125/70; PULSE 98; RESP 60; TEMP 98; O2SAT 14
[2017-07-20] MEDS: PYRIDOSTIGMINE BROMIDE 60 MG TAB PO SCH ×3 (00:44→08:26)
[2017-07-20] MEDS: INSULIN ASPART SUPPLEMENTAL SCALE SQ SCH (07:41)
[2017-07-20 08:00] VITALS: BP 142/76; PULSE 61; RESP 18; O2SAT 99
[2017-07-20] MEDS: SODIUM CHLORIDE 0.9% FLUSH 10 ML FLUSH IV FLUSH SCH (08:25)
[2017-07-20] MEDS: ASPIRIN EC 325 MG TABEC PO SCH (08:26)
[2017-07-20] MEDS: FENOFIBRATE 145 MG TAB PO SCH (08:26)
[2017-07-20] MEDS: MYCOPHENOLATE MOFETIL 500 MG TAB PO SCH (08:26)
[2017-07-20] MEDS: PARoxetine HCL 20 MG TAB PO SCH (08:26)
[2017-07-20] MEDS: PANTOPRAZOLE SOD 20 MG DELAYED RELEASE TAB PO SCH (08:26)
[2017-07-20] MEDS: CYANOCOBALAMIN 1000 MCG/ML VIAL SQ SCH (08:27)
[2017-07-20 09:09] VITALS: PULSE 57
--- NOTE | 2017-07-20 09:25 | HHI.DS ---
Discharge Summary Admission Date July 15, 2017 at 20:20 Discharge Date: July 20, 2017 Admitting Diagnosis Myasthenia Gravis with concern for early crisis . (1) Myasthenia gravis ICD Code: G70.00 - Myasthenia gravis without (acute) exacerbation Diagnosis: Principal (2) Type 2 diabetes mellitus ICD Code: E11.9 - Type 2 diabetes mellitus without complications Diagnosis: Principal Status: Chronic Procedures Cardiac catheterization Brief History - From Admission Mr. Queen is a pleasant 36-year-old male who moved here from [place], [place] in September 2016 and has a history of myasthenia gravis diagnosed in 2009 who presented tot he ER in [place] complaining of lung congestion with ineffective cough. The case was discussed with the promotional representative neurologist who had concern for early myasthenia gravis crisis and recommended transfer to main [facility] for further evaluation. The patient is seen in his hospital room. He reports symptoms started on July 06 while he was watching the [employer] draft. He ate some buffalo chicken pizza and felt like he had heartburn afterwards. He states he developed what felt like chest congestion afterwards and was concerned that he may have aspirated in his sleep because his CPAP tubing smelled like buffalo sauce. He has had persistent chest congestion since then and has tried to cough but can only "clear my throat". He reports feeling warm yesterday but has no recorded fever and denies chills. He has chronically loose stools but denies nausea or vomiting or any recent changes in stool pattern. He denies any weakness. He reports no history of respiratory failure or intubation. CBC/BMP: 07/17/17 0658 07/17/17 0658 Imaging Last Impressions Myocardial Perfusion Scan Nuc Med 07/17/17 0000 Signed Impressions: Service Date/Time: Monday, July 17, 2017 11:12 - CONCLUSION: 1. Moderate reversibility in the anterior wall which may represent ischemia. 2. Normal ejection fraction. RISK CATEGORY: High (>3%% Annual Mortality Rate) Sen Perez MD CT Angiography 07/16/17 1550 Signed Impressions: Service Date/Time: Sunday, July 16, 2017 16:23 - CONCLUSION: 1. No evidence of pulmonary embolism. 2. Mild cardiomegaly. 3. Enlarged fatty liver. 4. Mild splenomegaly. 5. 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 6. Fibrotic scarring within the left posterior lung base. 7. Tiny apical bleb on the right. Diomedes Mckeon MD PE at Discharge GENERAL: NAD, A&Ox3 CARDIOVASCULAR: Regular rhythm without murmurs, gallops, or rubs. Bradycardic RESPIRATORY: Breath sounds equal bilaterally. No accessory muscle use. GASTROINTESTINAL: Abdomen soft, non-tender, nondistended. MUSCULOSKELETAL: No cyanosis, or edema. SKIN: Warm and dry. NEURO: No focal neurological deficits. Hospital Course 36-year-old male admitted secondary to possible myasthenia gravis exacerbation with anterior chest pain/tightness Myasthenia Gravis versus chest pain Low concern for MG exac Troponin is normal Neurology continues to follow NIF testing was 25% Continue Mestinon and Cellcept Pulmonology consulted follow-up PFTs CTA negative for PE Stress test abnormal with ischemia. Cardiac catheterization with mild CAD continue aspirin. Unable to start beta-young secondary to baseline bradycardia. Patient states he had recent lipid profile and A1c 2 weeks ago patient to follow-up with PCP. Unremarkable ECHO Diabetes mellitus type 2 reportedly A1c of 6 2 weeks ago Follow blood sugars Insulin sliding scale Diabetic diet Hypertriglyceridemia Continue Tricor GERD Continue omeprazole JESUS Continue CPAP. Depression Continue Paxil Enlarged fatty liver with splenomegaly. Outpatient follow-up with gastroenterology. Weight reduction and management of lipids DVT prophylaxis SCDs/TEDs Pt Condition on Discharge: Stable Discharge Disposition: Discharge Home Discharge Time: <= 30 minutes Discharge Instructions DIET: Follow Instructions for: Heart Healthy Diet, Diabetic Diet Activities you can perform: Regular-No Restrictions Activities to Avoid: Driving Follow up Referrals: Gastroenterology - 1 Week Neurology - 1 Week PCP Follow-up - 2-3 Days New Medications: Aspirin DR (Aspirin EC) 81 Mg Tabdr 81 MG PO DAILY for Prevent Blood Clot, #30 TAB 0 Refills Continued Medications: Fenofibrate (Fenofibrate) 145 Mg Tab 145 MG PO DAILY, #30 TAB 0 Refills Glipizide ER (Glipizide ER) 2.5 Mg Estefania 2.5 MG PO DAILY for Blood Sugar Management, #30 TAB 0 Refills Take with breakfast or first main meal of the day Insulin Glargine Inj (Lantus Inj) 1,000 Unit/10 Ml Vial 40 UNITS SQ HS for Blood Sugar Management, VIAL 0 Refills Loperamide (Imodium A-D) 2 Mg Capsule 2 MG PO DAILY PRN for DIARRHEA, CAP 0 Refills One capsule after each loose stool. Not to exceed 8 tablets per day. Metformin ER (Metformin ER) 500 Mg Estefania 500 MG PO BID for Blood Sugar Management, TAB 0 Refills Restart on 07/21 With evening meal Mycophenolate (Cellcept) 250 Mg Cap 1000 MG PO BID for Immunosuppression, #240 CAP 0 Refills Omeprazole (Omeprazole) 20 Mg Tab 20 MG PO DAILY, #30 TAB 0 Refills Paroxetine (Paxil) 10 Mg Tab 10 MG PO DAILY, #30 TAB 0 Refills Pyridostigmine (Mestinon) 60 Mg Tab 60 MG PO Q4HR for Manage Myastenia Gravis, #180 TAB 0 Refills Esvin Traylor MD July 20, 2017 09:25
== END 2017-07-20 09:36 | disposition home or self-care (01) | DRG 287 ==
LOC: NEDDLT 17:35 → OBSVTOIN 20:20 → N05B 20:20 → UNDODISIN 07-18 17:15
PROVIDERS: ADMIT Internal Medicine; ATTEND Internal Medicine
PROC: B2111ZZ Fluoroscopy of Multiple Coronary Arteries using Low Osmolar Contrast (ICD-10-PCS; principal; 2017-07-19)
PROC: 4A023N7 Measurement of Cardiac Sampling and Pressure, Left Heart, Percutaneous Approach (ICD-10-PCS; 2017-07-19)
DX: R07.89 Other chest pain (principal); G70.00 Myasthenia gravis without (acute) exacerbation; K76.0 Fatty (change of) liver, not elsewhere classified; R16.2 Hepatomegaly with splenomegaly, not elsewhere classified; F32.9 Major depressive disorder, single episode, unspecified; E11.9 Type 2 diabetes mellitus without complications; Z79.4 Long term (current) use of insulin; I25.10 Atherosclerotic heart disease of native coronary artery without angina pectoris; E78.1 Pure hyperglyceridemia; K21.9 Gastro-esophageal reflux disease without esophagitis; G47.33 Obstructive sleep apnea (adult) (pediatric); E66.3 Overweight; Z68.36 Body mass index [BMI] 36.0-36.9, adult; I10 Essential (primary) hypertension; Z23 Encounter for immunization; Z87.891 Personal history of nicotine dependence
CPT/HCPCS: 36600; 71046; 71275; 78452; 80048; 80053; 82550; 82607; 82805; 82948; 83519; 83605; 83690; 83921; 84425; 84439; 84443; 84484; 85025; 85610; 85652; 85730; 86038; 86255; 86430; 86592; 90686; 90732; 93005; 93017; 93306; 93458; 94002; 94060; 94150; 94799; 99152; 99153; 99285; A9502; C1769; C1893; G8987-GP; G8988-GP; J1644; J2250; J2785; J3010; J3420; J7517; Q2038; Q9967